=== PATIENT | female | born 1965 | race Caucasian/White ===

== ENCOUNTER 2025-08-02 15:51 | Inpatient (IN) | payer OTHER, SELFPAY ==
[2025-08-02 17:10] VITALS: BP 122/78; PULSE 64; RESP 16; TEMP 36.6; O2SAT 98
[2025-08-02 17:50] VITALS: BMI 29.1
--- NOTE | 2025-08-02 18:37 | PC.ADMIT ---
Leigh was BIBA from [facility] ED on a section 12A at 1610. She is alert, oriented and tearful but pleasant. She is disheveled and appears older than stated age. She is mostly Icelandic speaking, but does understand quite a bit. Regardless, the [employer] management retail intern system and management retail intern # [id number] was utilized throughout.? She was cooperative with skin and safety check, skin check is only significant for a large sternal scar from a heart valve replacement and some very superficial scratches on right forearm. She has a history of anxiety and depression. She states she is here, gestures to right arm, ?I cut myself. I did want to hurt myself but I do not want to ?. Through the management retail intern, she did take ?4 more medicines than usual, just to sleep. But I wanted to wake up!?, She has been very depressed since her mother 4 months ago. ?I just sleep, all the time, sleep?. She is tearful describing being with her mom every day in the hospital while she was sick and dying. She denies urges to harm self or others and any visual or perceptual disturbances. She states she has chronic back pain which she takes ?percocet?, asthma, ?stomach problems? last bm was today, Its documented that she has hypertension, but she didn't mention it. She had a heart valve replacement and is now on coumadin, last INR 2.1 done 07/[address] [facility]. Phlebotomy is drawing a stat INR now (1819), when it is resulted pharmacy will verify coumadin dose to be given tonight. 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 She has some memory lapses since and some occasional garbled speech. She uses a cane at home, ?I fall sometimes at home?, a walker was given. She denies smoking, vaping, drinking alcohol or using any illicit substances currently. However, her toxicology screen at [facility] was positive for cocaine, opiates and oxycodone. She declines the flu shot. It is documented in the paperwork from [facility] that her daughter Shani is her guardian but there is no legal paperwork with the patient. She signed a cv with Dr Herrera and is on 5 minute safety checks due to walker.?
[2025-08-02 19:01] LABS: INTERNATIONAL NORM RATIO 1.9 (0.9-1.1); Prothrombin Time 21.9 SEC (10.9-12.4)
[2025-08-02 21:47] VITALS: BP 124/82; PULSE 78; RESP 18; TEMP 36.6; O2SAT 98
--- NOTE | 2025-08-03 06:48 | PC.NURSE ---
Patient spoke with TW with assistance of [facility] flour worker. She stated that while she was at [facility] she went in with her purse by her side, however when she was getting ready to transfer to [facility], she did not see the purse. She told her daughter Ana Leiva. Patient signed JLUIS allowing [facility] to speak with the daughter. Patient did not know the phone number of her daughter by memory, TW wrote down the phone number for patient. Per paperwork from [facility] the number for Ana is [phone]. TW was unable to verify information given by patient about her missing purse.
--- NOTE | 2025-08-03 08:23 | P.CONHOSP_ITS ---
History of Present Illness Data of Consult Service Date: 08/03/25 Primary Care Provider: Litzy Mcknight MD [facility] Reason for consult: Medical consult Patient is a 59-year-old female with a past medical history of anxiety, depression, heart valve replacement on Coumadin, hypertension, hyperlipidemia and chronic kidney disease who presented to the emergency department at [facility] with suicide attempt. Patient reportedly took too many medications and then also observed her cutting herself with a knife. Patient's lab work revealed creatinine of 1.19 GFR 52. No other electrolyte abnormalities, no leukocytosis, no anemia. Tox screen positive were cocaine, opiates. Patient is prescribed opiates. Her EKG demonstrated sinus bradycardia with no ischemic changes. On exam she is weepy, reports that she misses her mother. Denies any medical concerns. Denies any concerning symptoms. Review of Systems 2 Review of Systems: Denies any shortness of breath, chest pain, headaches, dysuria, abdominal pain or discomfort, nausea, vomiting or diarrhea. Denies fever or chills. [facility] Medical History (Updated 08/03/25 @ 14:38 by Leann Hernandez DNP) Cocaine use disorder MDD (major depressive disorder), recurrent severe, without psychosis Social History Household Members: None Housing: Apartment Do you presently have visiting nurse or other home services: Yes ([facility]) Patient Tobacco Use Status: Former Tobacco user Smoked in Last 30 Days: No Currently Displaying Signs/Symptoms of Drug Intoxication Withdrawal: No Mormonism Healthcare Practices: Gnosticism Advance Directives: No Advance Directives Information Provided: Yes Do you have thoughts of harming others: None Do you have a plan to hurt others: No Plan Recently lost weight without trying: No Nutrition Risks: No Nutritional Risk Patient : No : No Poor oral hygiene: No Meds Allergies Allergy/AdvReac Type Severity Reaction Status Date / Time No Known Allergies Allergy Verified 08/02/25 17:01 Active Medications: Current Medications Acetaminophen (Acetaminophen 325 Mg Tablet) 650 mg PO Q6H PRN PRN Reason: Headache/Pain, Scale 1-10 Last Admin: 08/03/25 06:11 Dose: 650 mg Al Hydroxide/Mg Hydroxide (Magnesium Hydrox/Alum Hydrox 30 Ml Oral.Susp) 30 ml PO Q6H PRN PRN Reason: Heartburn/Nausea Aspirin (Aspirin Enteric Coated 81 Mg Tablet.Dr) 81 mg PO DAILY JUAN ANTONIO Atorvastatin Calcium (Atorvastatin Calcium 20 Mg Tablet) 20 mg PO DAILY JUAN ANTONIO Furosemide (Furosemide 20 Mg Tablet) 20 mg PO DAILY JUAN ANTONIO; Protocol Hydroxyzine HCl (Hydroxyzine Hcl 25 Mg Tablet) 25 mg PO Q6H PRN PRN Reason: mild anxiety Lisinopril (Lisinopril 5 Mg Tablet) 5 mg PO DAILY JUAN ANTONIO; Protocol Magnesium Hydroxide (Milk Of Magnesia 30 Ml Oral.Susp) 30 ml PO DAILY PRN PRN Reason: Constipation Mirtazapine (Mirtazapine 7.5 Mg Tablet) 7.5 mg PO BEDTIME PRN PRN Reason: Sleep Nicotine (Nicotine 21 Mg Patch.Td24) 21 mg TRANSDERMA DAILY PRN PRN Reason: smoking cessation Nicotine Polacrilex (Nicotine Polacrilex 2 Mg Gum) 4 mg BUCCAL Q2H PRN PRN Reason: Nicotine Cravings Olanzapine (Olanzapine 2.5 Mg Tablet) 2.5 mg PO TID PRN PRN Reason: agitation Oxycodone HCl (Oxycodone Hcl Immed Release 5 Mg Tablet) 5 mg PO Q12H PRN PRN Reason: severe pain Paroxetine HCl (Paroxetine Hcl 30 Mg Tablet) 30 mg PO DAILY JUAN ANTONIO Trazodone HCl (Trazodone Hcl 50 Mg Tablet) 50 mg PO BEDTIME MRX1 PRN PRN Reason: Insomnia Warfarin Sodium (Warfarin Sodium 5 Mg Tablet) 5 mg PO DAILY@1800 JUAN ANTONIO Last Admin: 08/02/25 20:21 Dose: 5 mg Home Medications ?Medication ?Instructions ?Recorded ?Confirmed ?Last Taken ?Type aspirin 81 mg tablet,delayed 81 mg PO DAILY 08/02/25 1 08/02/25 History release atorvastatin 20 mg tablet 20 mg PO DAILY 08/02/2507/1408/01/25 21:00 History clonazepam 0.5 mg tablet 0.5 mg PO DAILY PRN Anxiety 08/02/25 08/02/25 Unknown History clonazepam 0.5 mg tablet 1 mg PO BEDTIME 08/02/25 Unknown History furosemide 20 mg tablet 20 mg PO DAILY 08/02/2507/1408/02/25 09:00 History gabapentin 300 mg capsule 300 mg PO BID 08/02/2508/0208/02/25 09:00 History lisinopril 5 mg tablet 5 mg PO DAILY 08/02/2508/02 Unknown History mirtazapine 15 mg tablet 7.5 mg PO BEDTIME PRN Sleep 08/02/25 08/02/25 Unknown History oxycodone 5 mg tablet 5 mg PO Q12H PRN pain 08/02/25 Unknown History paroxetine HCl 30 mg tablet 30 mg PO DAILY depressive disorder 08/02/25 08/02/25 Unknown History warfarin 5 mg tablet 5 mg PO DAILY 08/02/2508/0208/01/25 17:00 History Physical Exam 2 Vital Signs and Narrative: Vital Signs: Last Vital Signs Temp 97.8 F 08/02/25 21:47 Pulse 78 08/02/25 21:47 Resp 18 08/02/25 21:47 BP 124/82 08/02/25 21:47 Pulse Ox 98 08/02/25 21:47 O2 Del Method Room Air 08/02/25 21:47 BMI result Body Mass Index 29.1 Alert and oriented X3, able to give good history. Neuro: CN II-X11 intact, no deficits, visual acuity intact EYES: PERRLA, EOM intact ENT: Hearing intact, MMM Cardiac: S1 S2 RRR, No ectopy Pulmonary: lungs clear to auscultation, No increased WOB. Abdominal: BS active in all 4 quadrants, no guarding or tenderness MSK: Strength 5/5 upper and lower extremities : Deferred Extremities: No edema in lower extremities Psych: Weepy Skin: Warm and dry, Intact Results Labs 08/03/25 08:09 Labs: Laboratory Results - last 24 hr 08/02/25 18:32 PT 21.9 H INR 1.9 H Assessment and Plan (1) HTN (hypertension): Status: Acute Plan 59-year-old female admitted to inpatient psych after she presented to [facility] with major depressive disorder, psychosis and suicide ideation. Anxiety/MDD/Psychosis Treatment per psychiatric team History of mitral valve replacement on Coumadin/hypertension/hyperlipidemia/fluid overload related to rheumatic heart disease Continue Coumadin dosing per pharmacy recommendation Continue atorvastatin, Lasix, lisinopril daily Appears euvolemic on exam Vitals and labs were stable Chronic kidney disease Baseline 1.2 Avoid nephrotoxins Chronic arthralgias Takes oxycodone chronically Thank you for allowing me to participate in the care of this patient. Will follow with you, please notify medical provider with any changes in condition or concerns.
[2025-08-03 08:30] LABS: INTERNATIONAL NORM RATIO 1.9 (0.9-1.1); Prothrombin Time 21.5 SEC (10.9-12.4)
[2025-08-03 08:48] LABS: Alanine Aminotransferase 16 U/L (0-31); Albumin Level 4.3 g/dL (3.5-5.0); Alkaline Phosphatase 103 U/L (39-117); Anion Gap 11 (12-20); Aspartate Amino Transferase 23 U/L (5-31); Blood Urea Nitrogen 16 mg/dL (9-16); Calcium 9.7 mg/dL (8.4-10.2); Carbon Dioxide 26 mmol/L (22-29); Chloride 109 mmol/L (96-108); Cholesterol 156 mg/dL (<200); Creatinine Clr Calc Pharmacy 69.6; Estimated Glomerular Filt Rate 57; HDL Cholesterol 46 mg/dL (>40); Potassium 4.4 mmol/L (3.3-5.1); Sodium 142 mmol/L (135-145); Total Protein 7.2 g/dL (6.5-8.0); Triglycerides 89 mg/dL (<150)
[2025-08-03 09:36] VITALS: BP 145/74
[2025-08-03] MEDS: Aspirin Enteric Coated 81 MG TABLET.DR PO (09:37)
[2025-08-03 09:45] VITALS: PULSE 72; RESP 16; TEMP 36.6; O2SAT 97
--- NOTE | 2025-08-03 10:50 | HO.PSYADMNOT ---
HPI Date of Service: 08/03/25 Chief Complaint: Major Depression severe recurrent with psychosis Sources of Information: patient interviewed, chart reviewed and crisis/core team assessment reviewed HPI Subjective Notes: Raymond Warning, Conditional Voluntary and 3 Day Narrative: met with patient on 08/02/2025, and again on 08/03/25 at 12:00 with Territory Sales Executive Josselin Patient is a 59-year-old female with history of anxiety, MDD, heart valve replacement on Coumadin, HTN, HLD, CKD, CVA(?), chronic back pain prescribed oxycodone, who presented to the ED following suicidal gesture in the face of ongoing depression. On 08/02 Patient reported being depressed since her mother 4 months ago, saying she just sleeps all the time. She said that she cut herself, indicating her arm (which has only superficial scratches) saying that she wanted to hurt herself but did not want to . Patient acknowledged that she took more medication than usual but denies that this was in any way a suicide attempt, saying she just wanted to sleep. She denies AVH; denies substance abuse; she is prescribed oxycodone however U tox was also positive for cocaine. Rubber Stamp Assembler attempted to meet with patient again on 08/03 to further clarify at assess however patient having ongoing diarrhea which kept interrupting ability to have a formal conversation. Patient reports that she has a guardian, her daughter Shani Past Psychiatric History: Unsure this time Medical Evaluation Reviewed: Hospitalist August Pending ON LICENSE OF [facility] Medical History (Updated 08/03/25 @ 14:24 by Cory Herrera MD) Cocaine use disorder MDD (major depressive disorder), recurrent severe, without psychosis Family History: Deferred Social History: Mother 4 months ago Has a daughter who is her guardian Substance History: UDS positive for cocaine Trauma History: Defer Diagnostics Vital Signs (24Hr): Vital Signs - 24 hr 08/02/25 17:10 08/02/25 21:47 08/03/25 09:36 Temperature 98 F 97.8 F Pulse Rate 64 78 Respiratory Rate 16 18 Blood Pressure 122/78 124/82 145/74 H Pulse Oximetry 98 98 Oxygen Delivery Method Room Air 08/03/25 09:45 Temperature 98 F Pulse Rate 72 Respiratory Rate 16 Blood Pressure Pulse Oximetry 97 Oxygen Delivery Method Room Air BMI result Body Mass Index 29.1 Labs 08/03/25 08:09 Labs: Laboratory Results - last 48 hr 08/02/25 08/03/25 18:32 08:09 PT 21.9 H 21.5 H INR 1.9 H 1.9 H Sodium 142 Potassium 4.4 Chloride 109 H Carbon Dioxide 26 Anion Gap 11 L BUN 16 Creatinine 0.99 Estim Creat Clear Calc 69.6 Estimated GFR 57 Random Glucose 99 Estimat Average Glucose 105 Hemoglobin A1c % 5.3 Calcium 9.7 Total Bilirubin 0.7 AST 23 ALT 16 Alkaline Phosphatase 103 Total Protein 7.2 Albumin 4.3 Triglycerides 89 Cholesterol 156 LDL Cholesterol, Calc 93 HDL Cholesterol 46 TSH 0.84 Meds/Allergies Meds Home Medications ?Medication ?Instructions ?Recorded ?Confirmed ?Type aspirin 81 mg tablet,delayed 81 mg PO DAILY 08/02/25 08/02/25 History release atorvastatin 20 mg tablet 20 mg PO DAILY 08/02/25 08/02/25 History clonazepam 0.5 mg tablet 0.5 mg PO DAILY PRN Anxiety 08/02/25 08/02/25 History clonazepam 0.5 mg tablet 1 mg PO BEDTIME 08/02/25 08/02/25 History furosemide 20 mg tablet 20 mg PO DAILY 08/02/25 08/02/25 History gabapentin 300 mg capsule 300 mg PO BID 08/02/25 08/02/25 History lisinopril 5 mg tablet 5 mg PO DAILY 08/02/25 08/02/25 History mirtazapine 15 mg tablet 7.5 mg PO BEDTIME PRN Sleep 08/02/25 08/02/25 History oxycodone 5 mg tablet 5 mg PO Q12H PRN pain 08/02/25 08/02/25 History paroxetine HCl 30 mg tablet 30 mg PO DAILY depressive disorder 08/02/25 08/02/25 History warfarin 5 mg tablet 5 mg PO DAILY 08/02/25 08/02/25 History Allergies Allergies Allergy/AdvReac Type Severity Reaction Status Date / Time No Known Allergies Allergy Verified 08/02/25 17:01 Mental Status Exam Mental Status Exam Narrative: Pt is alert and oriented; behavior is cooperative, tearful; patient is not in distress; dressed in hospital attire with unkempt hair but adequate hygiene; mood is described as sad and affect congruent, tearful; eye contact appropriate; Speech is normal rate, volume and prosody and not pressured; some psychomotor retardation present; thought process is goal directed, concrete; Thought content is on missing her mother; no paranoid ideations expressed; denies any SI/HI. Denies AVH Patients insight and judgment impaired Assessment & Plan Assessment & Plan (1) MDD (major depressive disorder), recurrent severe, without psychosis: Status: Acute Code(s): F33.2 - Major depressive disorder, recurrent severe without psychotic features (2) Cocaine use disorder: Status: Acute Code(s): F14.10 - Cocaine abuse, uncomplicated Plan HPI: Patient is a 59-year-old female with history of anxiety, MDD, heart valve replacement on Coumadin, HTN, HLD, CKD, CVA(?), chronic back pain prescribed oxycodone, who presented to the ED following suicidal gesture in the face of ongoing depression. On 08/02 Patient reported being depressed since her mother 4 months ago, saying she just sleeps all the time. She said that she cut herself, indicating her arm (which has only superficial scratches) saying that she wanted to hurt herself but did not want to . Patient acknowledged that she took more medication than usual but denies that this was in any way a suicide attempt, saying she just wanted to sleep. She denies AVH; denies substance abuse; she is prescribed oxycodone however U tox was also positive for cocaine. Rubber Stamp Assembler attempted to meet with patient again on 08/03 to further clarify at assess however patient having ongoing diarrhea which kept interrupting ability to have a formal conversation. Patient reports that she has a guardian, her daughter Shani Formulation/clinical reasoning: Reports worsening depression in the face of losing her mother. She is on Paxil 30 mg. Her full history is unclear as patient was not able to participate further due to diarrheal illness. Will continue home medication regimen for now. Collecting stool samples to rule out C diff. on the unit, patient had some behaviors that were hard to understand such as holding her feces in her hand and offering it to 1 of the counselors; being cleaned up in the bathroom with nurse to returned finding feces smeared all over her clothing; not sure if patient was trying to clean herself and was unable to (she uses a walker; possible history of CVA) or if this represents disorganization. Plan: CV Q 15 minute checks Continue home medication regimen Patient on Coumadin and INRs being checked daily C diff ordered/GI panel ordered Will get collateral Patient educated on: diagnosis and medical condition Informed Consent: understands and further education needed Reason for continued inpatient stay Substantial Risk for: rapid decompensation Statement Statement: I have reviewed the history and physical and performed a pertinent examination on my patient. No changes have occurred unless specified. If the History and Physical was not performed prior to admission, the Hospitalist's service will be consulted for completing the admission physical. Time Spent With Patient Time: Total time managing care of this patient today ____ minutes.
[2025-08-03 16:02] LABS: CDiff Gene PCR NEGATIVE (Negative)
[2025-08-03 20:00] VITALS: BP 166/72; PULSE 78; RESP 16; TEMP 36.6; O2SAT 98
[2025-08-04 05:36] LABS: E. coli EAEC Not Detected (Not Detect.); E. coli EPEC Not Detected (Not Detect.); E. coli ETEC Not Detected (Not Detect.); E. coli STEC Not Detected (Not Detect.); Shigella sp./EIEC Not Detected (Not Detect.)
[2025-08-04 07:00] VITALS: BMI 28.2
[2025-08-04 08:00] VITALS: BP 121/71; PULSE 76; RESP 18; TEMP 36.5; O2SAT 97
[2025-08-04] MEDS: Aspirin Enteric Coated 81 MG TABLET.DR PO (08:44)
--- NOTE | 2025-08-04 09:51 | P.PNPSI_ITS ---
Subjective Subjective Date of Service: 08/04/25 Reason For Visit: Major Depression severe recurrent with psychosis Interim History: met with patient; discussed with team; patient seen with coat examiner Josselin Patient said she is feeling better. 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 She denies any SI at all. She at 1st denied but then acknowledged that she sometimes uses crack; says that numerous people in the building sell it. Patient does not know her medications. She accepted that she is on an antidepressant. She says that she was very sad when her mother but that she is starting to feel like she is getting better. Patient gave permission to speak with her daughter who is also her guardian Patient's guardian and daughter said that patient has been getting increasingly more depressed since this summer, not attending to ADLs and has seemed more confused and forgetful. Mental Status Exam Mental Status Exam Narrative: Pt is alert and oriented; behavior is cooperative, calm; patient is not in distress; dressed in hospital attire with unkempt hair but adequate hygiene; mood is described as better and affect congruent, brighter, more calm; eye contact appropriate; Speech is normal rate, volume and prosody and not pressured; some psychomotor retardation present; thought process is goal directed, concrete; Thought content is on treatment; no paranoid ideations expressed; denies any SI/HI. Denies AVH Patients insight and judgment impaired Diagnostics Vital Signs (24Hr): Vital Signs - 24 hr 08/03/25 20:00 08/04/25 08:00 Temperature 97.8 F 97.7 F Pulse Rate 78 76 Respiratory Rate 16 18 Blood Pressure 166/72 H 121/71 Pulse Oximetry 98 97 Oxygen Delivery Method Room Air Room Air BMI result Body Mass Index 29.1 Labs 08/04/25 12:48 08/04/25 12:48 Labs: Laboratory Results - last 48 hr 08/02/25 08/03/25 08/03/25 18:32 08:09 13:00 PT 21.9 H 21.5 H INR 1.9 H 1.9 H Sodium 142 Potassium 4.4 Chloride 109 H Carbon Dioxide 26 Anion Gap 11 L BUN 16 Creatinine 0.99 Estim Creat Clear Calc 69.6 Estimated GFR 57 Random Glucose 99 Estimat Average Glucose 105 Hemoglobin A1c % 5.3 Calcium 9.7 Total Bilirubin 0.7 AST 23 ALT 16 Alkaline Phosphatase 103 Total Protein 7.2 Albumin 4.3 Triglycerides 89 Cholesterol 156 LDL Cholesterol, Calc 93 HDL Cholesterol 46 TSH 0.84 Stl C. cayetanensis PCR Not Detected Stool Rotavirus A PCR Not Detected Stl Adenov F 40/41 PCR Not Detected Stool Astrovirus (PCR) Not Detected Stool Campylobacter PCR Not Detected Stool Cryptosporidium PCR Not Detected Stl Sh Tox Pr E STEC PCR Not Detected Stool E coli O157 PCR Not applicable Stl Enterotoxigenic E PCR Not Detected Stool EPEC (PCR) Not Detected Stool EAEC (PCR) Not Detected Stl E. histolytica PCR Not Detected Stool Giardia Lamblia PCR Not Detected Stl P. shigelloides PCR Not Detected Stool Salmonella PCR Not Detected Stool Sapovirus (PCR) Not Detected Stl Shigella/EIEC PCR Not Detected St Y.enterocolitica PCR Not Detected Stool Vibrio (PCR) Not Detected Stl Vibrio cholerae PCR Not Detected Stl Norovirus GI/GII PCR Not Detected C. difficile Tox B Gene NEGATIVE Medications Medications Current Medications Acetaminophen (Acetaminophen 325 Mg Tablet) 650 mg PO Q6H PRN PRN Reason: Headache/Pain, Scale 1-10 Last Admin: 08/03/25 06:11 Dose: 650 mg Al Hydroxide/Mg Hydroxide (Magnesium Hydrox/Alum Hydrox 30 Ml Oral.Susp) 30 ml PO Q6H PRN PRN Reason: Heartburn/Nausea Aspirin (Aspirin Enteric Coated 81 Mg Tablet.Dr) 81 mg PO DAILY [facility] Last Admin: 08/04/25 08:44 Dose: 81 mg Atorvastatin Calcium (Atorvastatin Calcium 20 Mg Tablet) 20 mg PO DAILY [facility] Last Admin: 08/04/25 08:44 Dose: 20 mg Clonazepam (Clonazepam 0.5 Mg Tablet) 0.5 mg PO TID PRN PRN Reason: Anxiety Furosemide (Furosemide 20 Mg Tablet) 20 mg PO DAILY [facility]; Protocol Last Admin: 08/04/25 08:44 Dose: 20 mg Gabapentin (Gabapentin 300 Mg Capsule) 300 mg PO BID [facility] Last Admin: 08/04/25 08:44 Dose: 300 mg Hydroxyzine HCl (Hydroxyzine Hcl 25 Mg Tablet) 25 mg PO Q6H PRN PRN Reason: mild anxiety Last Admin: 08/03/25 20:49 Dose: 25 mg Lisinopril (Lisinopril 5 Mg Tablet) 5 mg PO DAILY [facility]; Protocol Last Admin: 08/04/25 08:44 Dose: 5 mg Loperamide HCl (Loperamide Hcl 2 Mg Capsule) 2 mg PO Q6H PRN PRN Reason: loose stool Last Admin: 08/03/25 20:48 Dose: 2 mg Magnesium Hydroxide (Milk Of Magnesia 30 Ml Oral.Susp) 30 ml PO DAILY PRN PRN Reason: Constipation Mirtazapine (Mirtazapine 7.5 Mg Tablet) 7.5 mg PO BEDTIME PRN PRN Reason: Sleep Nicotine (Nicotine 21 Mg Patch.Td24) 21 mg TRANSDERMA DAILY PRN PRN Reason: smoking cessation Nicotine Polacrilex (Nicotine Polacrilex 2 Mg Gum) 4 mg BUCCAL Q2H PRN PRN Reason: Nicotine Cravings Olanzapine (Olanzapine 2.5 Mg Tablet) 2.5 mg PO TID PRN PRN Reason: agitation Oxycodone HCl (Oxycodone Hcl Immed Release 5 Mg Tablet) 5 mg PO Q12H PRN PRN Reason: severe pain Paroxetine HCl (Paroxetine Hcl 30 Mg Tablet) 30 mg PO DAILY [facility] Last Admin: 08/04/25 08:44 Dose: 30 mg Trazodone HCl (Trazodone Hcl 50 Mg Tablet) 50 mg PO BEDTIME MRX1 PRN PRN Reason: Insomnia Warfarin Sodium (Warfarin Sodium 5 Mg Tablet) 5 mg PO DAILY@1800 [facility] Last Admin: 08/03/25 20:48 Dose: 5 mg Allergies Allergies Allergy/AdvReac Type Severity Reaction Status Date / Time No Known Allergies Allergy Verified 08/02/25 17:01 Assessment & Plan Assessment & Plan (1) MDD (major depressive disorder), recurrent severe, without psychosis: Status: Acute Code(s): F33.2 - Major depressive disorder, recurrent severe without psychotic features (2) HTN (hypertension): Status: Acute Code(s): I10 - Essential (primary) hypertension (3) Cocaine use disorder: Status: Acute Code(s): F14.10 - Cocaine abuse, uncomplicated Plan HPI: Patient is a 59-year-old female with history of anxiety, MDD, heart valve replacement on Coumadin, HTN, HLD, CKD, CVA(?), chronic back pain prescribed oxycodone, who presented to the ED following suicidal gesture in the face of ongoing depression. On 08/02 Patient reported being depressed since her mother 4 months ago, saying she just sleeps all the time. She said that she cut herself, indicating her arm (which has only superficial scratches) saying that she wanted to hurt herself but did not want to . Patient acknowledged that she took more medication than usual but denies that this was in any way a suicide attempt, saying she just wanted to sleep. She denies AVH; denies substance abuse; she is prescribed oxycodone however U tox was also positive for cocaine. Heating And Blending Supervisor attempted to meet with patient again on 08/03 to further clarify at assess however patient having ongoing diarrhea which kept interrupting ability to have a formal conversation. Patient reports that she has a guardian, her daughter Shani Formulation/clinical reasoning: Reports worsening depression in the face of losing her mother. She is on Paxil 30 mg. Her full history is unclear as patient was not able to participate further due to diarrheal illness. Will continue home medication regimen for now. Collecting stool samples to rule out C diff. on the unit, patient had some behaviors that were hard to understand such as holding her feces in her hand and offering it to 1 of the counselors; being cleaned up in the bathroom with nurse to returned finding feces smeared all over her clothing; not sure if patient was trying to clean herself and was unable to (she uses a walker; possible history of CVA) or if this represents disorganization. Hospital course: 08/04 Patient said she is feeling better. 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 She denies any SI at all. She at 1st denied but then acknowledged that she sometimes uses crack; says that numerous people in the building sell it. Patient does not know her medications. She accepted that she is on an antidepressant. She says that she was very sad when her mother but that she is starting to feel like she is getting better. Patient gave permission to speak with her daughter who is also her guardian -Patient's guardian and daughter said that patient has been getting increasingly more depressed since this summer, not attending to ADLs and has seemed more confused and forgetful. -patient amenable to increasing or adding antidepressant medication -Diarrhea has fully resolved. C diff/GI panel negative. Heating And Blending Supervisor wonders if patient was taking increase dose of her home oxycodone prescription and on the unit, only being given 1 mg b.i.d., had some opiate withdrawal, triggering loose stool. Patient denies taking anymore than 1 mg b.i.d. Plan: CV Q 15 minute checks Continue home medication regimen Patient on Coumadin and INRs being checked daily C diff/GI panel negative Will get collateral Patient educated on diagnosis and medical condition Anxiety/MDD/Psychosis Treatment per psychiatric team History of mitral valve replacement on Coumadin/hypertension/hyperlipidemia/fluid overload related to rheumatic heart disease Continue Coumadin dosing per pharmacy recommendation Continue atorvastatin, Lasix, lisinopril daily Appears euvolemic on exam Vitals and labs were stable Chronic kidney disease Baseline 1.2 Avoid nephrotoxins Chronic arthralgias Takes oxycodone chronically Patient educated on: diagnosis, medication risk/benefits, substance abuse, therapeutic strategies and medical condition Informed Consent: understands and further education needed Reason for continued inpatient stay Substantial Risk for: rapid decompensation Time Spent With Patient Time: Total time managing care of this patient today ____ minutes.
[2025-08-04 12:53] LABS: MANUAL DIFF FLAG NO
[2025-08-04 12:55] LABS: Hematocrit 38.9 % (37.0-47.0); Hemoglobin 13.2 g/dl (12.0-16.0); Imm Gran Abs Auto 0.03 X10*3/uL (0.00-0.03); Imm Gran Pct Auto 0.3 % (0.0-0.4); Lymphocytes Absolute Auto 1.2 X10*3/uL (1.2-4.9); Mean Corpuscular HGB Conc 33.9 g/dl (31.0-35.0); Mean Corpuscular Hemoglobin 30.6 pg (27.0-33.0); Mean Corpuscular Volume 90.3 fL (80.0-98.0); NRBC Abs Auto 0.000 X10*3/uL (0.0-0.012); NRBC Pct Auto 0.0 /100WBC (0.0-0.2); Platelet Count 294 X10*3/uL (160-400); Red Blood Count 4.31 X10*6/uL (4.20-5.50); White Blood Count 9.1 X10*3/uL (4.8-10.8)
[2025-08-04 13:01] LABS: INTERNATIONAL NORM RATIO 2.9 (0.9-1.1); Prothrombin Time 33.8 SEC (10.9-12.4)
[2025-08-04 13:12] LABS: Anion Gap 15 (12-20); Blood Urea Nitrogen 19 mg/dL (9-16); Calcium 9.4 mg/dL (8.4-10.2); Carbon Dioxide 23 mmol/L (22-29); Chloride 109 mmol/L (96-108); Creatinine Clr Calc Pharmacy 57.0; Estimated Glomerular Filt Rate 46; Potassium 3.9 mmol/L (3.3-5.1); Sodium 143 mmol/L (135-145)
[2025-08-04 19:52] VITALS: BP 147/67; PULSE 61; RESP 16; TEMP 36.8; O2SAT 99
[2025-08-05 07:56] VITALS: BP 148/74; PULSE 74; RESP 16; TEMP 36.4; O2SAT 97
[2025-08-05 08:22] LABS: INTERNATIONAL NORM RATIO 3.0 (0.9-1.1); Prothrombin Time 34.2 SEC (10.9-12.4)
[2025-08-05 08:59] VITALS: BP 148/74
[2025-08-05] MEDS: Aspirin Enteric Coated 81 MG TABLET.DR PO (08:59)
--- NOTE | 2025-08-05 09:45 | HO.PSYCHPN ---
Subjective Subjective Date of Service: 08/05/25 Reason For Visit: Major Depression severe recurrent with psychosis Interim History: Met with patient; discussed with team Patient reports that she is feeling better but agrees with the daughter that she has been very depressed over the past months and agrees to starting Wellbutrin. Pocket Setter discussed reasoning for starting this med with which she agreed. OT did [place] and patient scored 12/30. starting Wellbutrin XR 150mg to address worsening depression and to help with executive functioning Mental Status Exam Mental Status Exam Narrative: Pt is alert and oriented; behavior is isolative and mostly lying in bed and keeping herself however cooperative and friendly on approach; patient is not in distress; dressed in hospital attire with unkempt hair but adequate hygiene; mood is described as better and affect congruent, brighter, more calm; eye contact appropriate; Speech is normal rate, volume and prosody and not pressured; some psychomotor retardation present; thought process is goal directed, concrete; Thought content is on treatment; no paranoid ideations expressed; denies any SI/HI. Denies AVH Patients insight and judgment impaired Diagnostics Vital Signs (24Hr): Vital Signs - 24 hr 08/04/25 19:52 08/05/25 07:56 08/05/25 08:59 Temperature 98.2 F 97.5 F Pulse Rate 61 74 Respiratory Rate 16 16 Blood Pressure 147/67 H 148/74 H 148/74 H Pulse Oximetry 99 97 Oxygen Delivery Method Room Air Room Air BMI result Body Mass Index 28.2 Labs 08/04/25 12:48 08/04/25 12:48 Labs: Laboratory Results - last 48 hr 08/03/25 08/04/25 08/05/25 13:00 12:48 07:53 WBC 9.1 RBC 4.31 Hgb 13.2 Hct 38.9 MCV 90.3 MCH 30.6 MCHC 33.9 RDW 13.5 Plt Count 294 MPV 10.6 Immature Gran % (Auto) 0.3 Neut % (Auto) 80.2 H Lymph % (Auto) 13.1 L [place] % (Auto) 5.8 Eos % (Auto) 0.3 Baso % (Auto) 0.3 Lymph # (Auto) 1.2 [place] # (Auto) 0.5 Eos # (Auto) 0.0 Baso # (Auto) 0.0 Abs Immat Gran (auto) 0.03 Absolute Neuts (auto) 7.3 Absolute Nucleated RBC 0.000 Nucleated RBC % (auto) 0.0 PT 33.8 H D 34.2 H INR 2.9 H 3.0 H Sodium 143 Potassium 3.9 Chloride 109 H Carbon Dioxide 23 Anion Gap 15 BUN 19 H Creatinine 1.19 Estim Creat Clear Calc 57.0 Estimated GFR 46 Random Glucose 172 H Calcium 9.4 Stl C. cayetanensis PCR Not Detected Stool Rotavirus A PCR Not Detected Stl Adenov F 40/41 PCR Not Detected Stool Astrovirus (PCR) Not Detected Stool Campylobacter PCR Not Detected Stool Cryptosporidium PCR Not Detected Stl Sh Tox Pr E STEC PCR Not Detected Stool E coli O157 PCR Not applicable Stl Enterotoxigenic E PCR Not Detected Stool EPEC (PCR) Not Detected Stool EAEC (PCR) Not Detected Stl E. histolytica PCR Not Detected Stool Giardia Lamblia PCR Not Detected Stl P. shigelloides PCR Not Detected Stool Salmonella PCR Not Detected Stool Sapovirus (PCR) Not Detected Stl Shigella/EIEC PCR Not Detected St Y.enterocolitica PCR Not Detected Stool Vibrio (PCR) Not Detected Stl Vibrio cholerae PCR Not Detected Stl Norovirus GI/GII PCR Not Detected C. difficile Tox B Gene NEGATIVE Medications Medications Current Medications Acetaminophen (Acetaminophen 325 Mg Tablet) 650 mg PO Q6H PRN PRN Reason: Headache/Pain, Scale 1-10 Last Admin: 08/03/25 06:11 Dose: 650 mg Al Hydroxide/Mg Hydroxide (Magnesium Hydrox/Alum Hydrox 30 Ml Oral.Susp) 30 ml PO Q6H PRN PRN Reason: Heartburn/Nausea Aspirin (Aspirin Enteric Coated 81 Mg Tablet.Dr) 81 mg PO DAILY [facility] Last Admin: 08/05/25 08:59 Dose: 81 mg Atorvastatin Calcium (Atorvastatin Calcium 20 Mg Tablet) 20 mg PO DAILY [facility] Last Admin: 08/05/25 08:59 Dose: 20 mg Clonazepam (Clonazepam 0.5 Mg Tablet) 0.5 mg PO TID PRN PRN Reason: Anxiety Furosemide (Furosemide 20 Mg Tablet) 20 mg PO DAILY [facility]; Protocol Last Admin: 08/05/25 09:00 Dose: 20 mg Gabapentin (Gabapentin 300 Mg Capsule) 300 mg PO BID [facility] Last Admin: 08/05/25 08:59 Dose: 300 mg Hydroxyzine HCl (Hydroxyzine Hcl 25 Mg Tablet) 25 mg PO Q6H PRN PRN Reason: mild anxiety Last Admin: 08/04/25 21:25 Dose: 25 mg Lisinopril (Lisinopril 5 Mg Tablet) 5 mg PO DAILY [facility]; Protocol Last Admin: 08/05/25 08:59 Dose: 5 mg Loperamide HCl (Loperamide Hcl 2 Mg Capsule) 2 mg PO Q6H PRN PRN Reason: loose stool Last Admin: 08/03/25 20:48 Dose: 2 mg Magnesium Hydroxide (Milk Of Magnesia 30 Ml Oral.Susp) 30 ml PO DAILY PRN PRN Reason: Constipation Mirtazapine (Mirtazapine 7.5 Mg Tablet) 7.5 mg PO BEDTIME PRN PRN Reason: Sleep Nicotine (Nicotine 21 Mg Patch.Td24) 21 mg TRANSDERMA DAILY PRN PRN Reason: smoking cessation Nicotine Polacrilex (Nicotine Polacrilex 2 Mg Gum) 4 mg BUCCAL Q2H PRN PRN Reason: Nicotine Cravings Olanzapine (Olanzapine 2.5 Mg Tablet) 2.5 mg PO TID PRN PRN Reason: agitation Oxycodone HCl (Oxycodone Hcl Immed Release 5 Mg Tablet) 5 mg PO Q12H PRN PRN Reason: severe pain Paroxetine HCl (Paroxetine Hcl 30 Mg Tablet) 30 mg PO DAILY [facility] Last Admin: 08/05/25 08:59 Dose: 30 mg Trazodone HCl (Trazodone Hcl 50 Mg Tablet) 50 mg PO BEDTIME MRX1 PRN PRN Reason: Insomnia Warfarin Sodium (Warfarin Sodium 5 Mg Tablet) 5 mg PO DAILY@1800 [facility] Last Admin: 08/04/25 17:39 Dose: 5 mg Allergies Allergies Allergy/AdvReac Type Severity Reaction Status Date / Time No Known Allergies Allergy Verified 08/02/25 17:01 Assessment & Plan Assessment & Plan (1) MDD (major depressive disorder), recurrent severe, without psychosis: Status: Acute Code(s): F33.2 - Major depressive disorder, recurrent severe without psychotic features (2) HTN (hypertension): Status: Acute Code(s): I10 - Essential (primary) hypertension (3) Cocaine use disorder: Status: Acute Code(s): F14.10 - Cocaine abuse, uncomplicated Plan HPI: Patient is a 59-year-old female with history of anxiety, MDD, heart valve replacement on Coumadin, HTN, HLD, CKD, CVA(?), chronic back pain prescribed oxycodone, who presented to the ED following suicidal gesture in the face of ongoing depression. On 08/02 Patient reported being depressed since her mother 4 months ago, saying she just sleeps all the time. She said that she cut herself, indicating her arm (which has only superficial scratches) saying that she wanted to hurt herself but did not want to . Patient acknowledged that she took more medication than usual but denies that this was in any way a suicide attempt, saying she just wanted to sleep. She denies AVH; denies substance abuse; she is prescribed oxycodone however U tox was also positive for cocaine. Pocket Setter attempted to meet with patient again on 08/03 to further clarify at assess however patient having ongoing diarrhea which kept interrupting ability to have a formal conversation. Patient reports that she has a guardian, her daughter Shani Formulation/clinical reasoning: Reports worsening depression in the face of losing her mother. She is on Paxil 30 mg. Her full history is unclear as patient was not able to participate further due to diarrheal illness. Will continue home medication regimen for now. Collecting stool samples to rule out C diff. on the unit, patient had some behaviors that were hard to understand such as holding her feces in her hand and offering it to 1 of the counselors; being cleaned up in the bathroom with nurse to returned finding feces smeared all over her clothing; not sure if patient was trying to clean herself and was unable to (she uses a walker; possible history of CVA) or if this represents disorganization. Hospital course: 08/04 Patient said she is feeling better. 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 She denies any SI at all. She at 1st denied but then acknowledged that she sometimes uses crack; says that numerous people in the building sell it. Patient does not know her medications. She accepted that she is on an antidepressant. She says that she was very sad when her mother but that she is starting to feel like she is getting better. Patient gave permission to speak with her daughter who is also her guardian -Patient's guardian and daughter said that patient has been getting increasingly more depressed since this summer, not attending to ADLs and has seemed more confused and forgetful. -patient amenable to increasing or adding antidepressant medication -Diarrhea has fully resolved. C diff/GI panel negative. Pocket Setter wonders if patient was taking increase dose of her home oxycodone prescription and on the unit, only being given 1 mg b.i.d., had some opiate withdrawal, triggering loose stool. Patient denies taking anymore than 1 mg b.i.d. 08/05 Patient reports that she is feeling better but agrees with the daughter that she has been very depressed over the past months and agrees to starting Wellbutrin. Pocket Setter discussed reasoning for starting this med with which she agreed. OT did [place] and patient scored 10/11. -starting Wellbutrin XR 150mg to address worsening depression and to help with executive functioning Plan: CV Q 15 minute checks STARTed Wellbutrin XR 150mg Continue home medication regimen Patient on Coumadin and INRs being checked daily C diff/GI panel negative Will get collateral Patient educated on diagnosis and medical condition Anxiety/MDD/Psychosis Treatment per psychiatric team History of mitral valve replacement on Coumadin/hypertension/hyperlipidemia/fluid overload related to rheumatic heart disease Continue Coumadin dosing per pharmacy recommendation Continue atorvastatin, Lasix, lisinopril daily Appears euvolemic on exam Vitals and labs were stable Chronic kidney disease Baseline 1.2 Avoid nephrotoxins Chronic arthralgias Takes oxycodone chronically Patient educated on: diagnosis and medication risk/benefits Informed Consent: understands Reason for continued inpatient stay Substantial Risk for: rapid decompensation Time Spent With Patient Time: Total time managing care of this patient today ____ minutes.
[2025-08-05] MEDS: buPROPion HCl XL 150 MG TAB.ER.24H PO (10:10)
[2025-08-05 20:00] VITALS: RESP 16
[2025-08-06 08:00] VITALS: BP 161/78; PULSE 78; RESP 18; TEMP 36.3; O2SAT 99
[2025-08-06] MEDS: buPROPion HCl XL 150 MG TAB.ER.24H PO (08:22)
[2025-08-06] MEDS: Aspirin Enteric Coated 81 MG TABLET.DR PO (08:22)
--- NOTE | 2025-08-06 09:44 | P.PNPSI_ITS ---
Subjective Subjective Date of Service: 08/06/25 Reason For Visit: Major Depression severe recurrent with psychosis Interim History: Met with patient; discussed with team.Mostly in room. Isolating. Had an episode of diarrhea this morning. No N/V. No abdominal pain. Received Imodium x with relief. No signs of opioid withdrawals. Mood: OK Denies SI/HI/AVH. Review of Systems Review of Systems Denies any shortness of breath, chest pain, headaches, dysuria, abdominal pain or discomfort, nausea, vomiting or diarrhea. Denies fever or chills. Mental Status Exam Mental Status Exam Narrative: Pt is alert and oriented; behavior is isolative and mostly lying in bed and keeping herself however cooperative and friendly on approach; patient is not in distress; dressed in hospital attire with unkempt hair but adequate hygiene; mood is described as better and affect congruent, brighter, more calm; eye contact appropriate; Speech is normal rate, volume and prosody and not pressured; some psychomotor retardation present; thought process is goal directed, concrete; Thought content is on treatment; no paranoid ideations expressed; denies any SI/HI. Denies AVH Patients insight and judgment impaired Diagnostics Vital Signs (24Hr): Vital Signs - 24 hr 08/05/25 20:00 08/06/25 08:00 Temperature 97.4 F Pulse Rate 78 Respiratory Rate 16 18 Blood Pressure 161/78 H Pulse Oximetry 99 Oxygen Delivery Method Room Air BMI result Body Mass Index 28.2 Labs 08/04/25 12:48 08/04/25 12:48 Labs: Laboratory Results - last 48 hr 08/04/25 08/05/25 12:48 07:53 WBC 9.1 RBC 4.31 Hgb 13.2 Hct 38.9 MCV 90.3 MCH 30.6 MCHC 33.9 RDW 13.5 Plt Count 294 MPV 10.6 Immature Gran % (Auto) 0.3 Neut % (Auto) 80.2 H Lymph % (Auto) 13.1 L [place] % (Auto) 5.8 Eos % (Auto) 0.3 Baso % (Auto) 0.3 Lymph # (Auto) 1.2 [place] # (Auto) 0.5 Eos # (Auto) 0.0 Baso # (Auto) 0.0 Abs Immat Gran (auto) 0.03 Absolute Neuts (auto) 7.3 Absolute Nucleated RBC 0.000 Nucleated RBC % (auto) 0.0 PT 33.8 H D 34.2 H INR 2.9 H 3.0 H Sodium 143 Potassium 3.9 Chloride 109 H Carbon Dioxide 23 Anion Gap 15 BUN 19 H Creatinine 1.19 Estim Creat Clear Calc 57.0 Estimated GFR 46 Random Glucose 172 H Calcium 9.4 Medications Medications Current Medications Acetaminophen (Acetaminophen 325 Mg Tablet) 650 mg PO Q6H PRN PRN Reason: Headache/Pain, Scale 1-10 Last Admin: 08/03/25 06:11 Dose: 650 mg Al Hydroxide/Mg Hydroxide (Magnesium Hydrox/Alum Hydrox 30 Ml Oral.Susp) 30 ml PO Q6H PRN PRN Reason: Heartburn/Nausea Aspirin (Aspirin Enteric Coated 81 Mg Tablet.Dr) 81 mg PO DAILY [facility] Last Admin: 08/06/25 08:22 Dose: 81 mg Atorvastatin Calcium (Atorvastatin Calcium 20 Mg Tablet) 20 mg PO DAILY [facility] Last Admin: 08/06/25 08:22 Dose: 20 mg Bupropion HCl (Bupropion Hcl Xl 150 Mg Tab.Er.24h) 150 mg PO DAILY [facility] Last Admin: 08/06/25 08:22 Dose: 150 mg Clonazepam (Clonazepam 0.5 Mg Tablet) 0.5 mg PO TID PRN PRN Reason: Anxiety Furosemide (Furosemide 20 Mg Tablet) 20 mg PO DAILY [facility]; Protocol Last Admin: 08/06/25 08:22 Dose: 20 mg Gabapentin (Gabapentin 300 Mg Capsule) 300 mg PO BID [facility] Last Admin: 08/06/25 08:22 Dose: 300 mg Hydroxyzine HCl (Hydroxyzine Hcl 25 Mg Tablet) 25 mg PO Q6H PRN PRN Reason: mild anxiety Last Admin: 08/05/25 21:40 Dose: 25 mg Lisinopril (Lisinopril 5 Mg Tablet) 5 mg PO DAILY [facility]; Protocol Last Admin: 08/06/25 08:22 Dose: 5 mg Loperamide HCl (Loperamide Hcl 2 Mg Capsule) 2 mg PO Q6H PRN PRN Reason: loose stool Last Admin: 08/03/25 20:48 Dose: 2 mg Magnesium Hydroxide (Milk Of Magnesia 30 Ml Oral.Susp) 30 ml PO DAILY PRN PRN Reason: Constipation Mirtazapine (Mirtazapine 7.5 Mg Tablet) 7.5 mg PO BEDTIME PRN PRN Reason: Sleep Nicotine (Nicotine 21 Mg Patch.Td24) 21 mg TRANSDERMA DAILY PRN PRN Reason: smoking cessation Nicotine Polacrilex (Nicotine Polacrilex 2 Mg Gum) 4 mg BUCCAL Q2H PRN PRN Reason: Nicotine Cravings Olanzapine (Olanzapine 2.5 Mg Tablet) 2.5 mg PO TID PRN PRN Reason: agitation Oxycodone HCl (Oxycodone Hcl Immed Release 5 Mg Tablet) 5 mg PO Q12H PRN PRN Reason: severe pain Paroxetine HCl (Paroxetine Hcl 30 Mg Tablet) 30 mg PO DAILY [facility] Last Admin: 08/06/25 08:22 Dose: 30 mg Trazodone HCl (Trazodone Hcl 50 Mg Tablet) 50 mg PO BEDTIME MRX1 PRN PRN Reason: Insomnia Warfarin Sodium (Warfarin Sodium 5 Mg Tablet) 5 mg PO DAILY@1800 [facility] Last Admin: 08/05/25 17:50 Dose: 5 mg Allergies Allergies Allergy/AdvReac Type Severity Reaction Status Date / Time No Known Allergies Allergy Verified 08/02/25 17:01 Assessment & Plan Assessment & Plan (1) MDD (major depressive disorder), recurrent severe, without psychosis: Status: Acute Code(s): F33.2 - Major depressive disorder, recurrent severe without psychotic features (2) HTN (hypertension): Status: Acute Code(s): I10 - Essential (primary) hypertension (3) Cocaine use disorder: Status: Acute Code(s): F14.10 - Cocaine abuse, uncomplicated Plan HPI: Patient is a 59-year-old female with history of anxiety, MDD, heart valve replacement on Coumadin, HTN, HLD, CKD, CVA(?), chronic back pain prescribed oxycodone, who presented to the ED following suicidal gesture in the face of ongoing depression. On 08/02 Patient reported being depressed since her mother 4 months ago, saying she just sleeps all the time. She said that she cut herself, indicating her arm (which has only superficial scratches) saying that she wanted to hurt herself but did not want to . Patient acknowledged that she took more medication than usual but denies that this was in any way a suicide attempt, saying she just wanted to sleep. She denies AVH; denies substance abuse; she is prescribed oxycodone however U tox was also positive for cocaine. Purchasing Administrative Assistant attempted to meet with patient again on 08/03 to further clarify at assess however patient having ongoing diarrhea which kept interrupting ability to have a formal conversation. Patient reports that she has a guardian, her daughter Shani Formulation/clinical reasoning: Reports worsening depression in the face of losing her mother. She is on Paxil 30 mg. Her full history is unclear as patient was not able to participate further due to diarrheal illness. Will continue home medication regimen for now. Collecting stool samples to rule out C diff. on the unit, patient had some behaviors that were hard to understand such as holding her feces in her hand and offering it to 1 of the counselors; being cleaned up in the bathroom with nurse to returned finding feces smeared all over her clothing; not sure if patient was trying to clean herself and was unable to (she uses a walker; possible history of CVA) or if this represents disorganization. Hospital course: 08/04 Patient said she is feeling better. 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 She denies any SI at all. She at 1st denied but then acknowledged that she sometimes uses crack; says that numerous people in the building sell it. Patient does not know her medications. She accepted that she is on an antidepressant. She says that she was very sad when her mother but that she is starting to feel like she is getting better. Patient gave permission to speak with her daughter who is also her guardian -Patient's guardian and daughter said that patient has been getting increasingly more depressed since this summer, not attending to ADLs and has seemed more confused and forgetful. -patient amenable to increasing or adding antidepressant medication -Diarrhea has fully resolved. C diff/GI panel negative. Purchasing Administrative Assistant wonders if patient was taking increase dose of her home oxycodone prescription and on the unit, only being given 1 mg b.i.d., had some opiate withdrawal, triggering loose stool. Patient denies taking anymore than 1 mg b.i.d. 08/05 Patient reports that she is feeling better but agrees with the daughter that she has been very depressed over the past months and agrees to starting Wellbutrin. Purchasing Administrative Assistant discussed reasoning for starting this med with which she agreed. OT did [place] and patient scored 10/11. -starting Wellbutrin XR 150mg to address worsening depression and to help with executive functioning 08/06: continue current management and treatment plan. Plan: CV Q 15 minute checks STARTed Wellbutrin XR 150mg Continue home medication regimen Patient on Coumadin and INRs being checked daily C diff/GI panel negative Will get collateral Patient educated on diagnosis and medical condition Anxiety/MDD/Psychosis Treatment per psychiatric team History of mitral valve replacement on Coumadin/hypertension/hyperlipidemia/fluid overload related to rheumatic heart disease Continue Coumadin dosing per pharmacy recommendation Continue atorvastatin, Lasix, lisinopril daily Appears euvolemic on exam Vitals and labs were stable Chronic kidney disease Baseline 1.2 Avoid nephrotoxins Chronic arthralgias Takes oxycodone chronically Reason for continued inpatient stay Substantial Risk for: harm to self, inability to function and rapid decompensation Time Spent With Patient Time: Total time managing care of this patient today ____ minutes.
[2025-08-06 20:00] VITALS: BP 140/93; PULSE 63; RESP 15; TEMP 35.8; O2SAT 98
[2025-08-07 08:00] VITALS: BP 142/73; PULSE 71; RESP 18; TEMP 36.4; O2SAT 99
[2025-08-07] MEDS: Aspirin Enteric Coated 81 MG TABLET.DR PO (08:26)
[2025-08-07] MEDS: buPROPion HCl XL 150 MG TAB.ER.24H PO (08:27)
--- NOTE | 2025-08-07 09:33 | P.PNPSI_ITS ---
Subjective Subjective Date of Service: 08/07/25 Reason For Visit: Major Depression severe recurrent with psychosis Interim History: Met with patient; discussed with team. Pleasant. No diarrhea since yesterday. Reports her mood is positive. Seems upbeat. Denies SI. Mostly in room. Slept well. Mood: Good and thumbs up. Denies SI/HI/AVH. Review of Systems Review of Systems Denies any shortness of breath, chest pain, headaches, dysuria, abdominal pain or discomfort, nausea, vomiting or diarrhea. Denies fever or chills. Mental Status Exam Mental Status Exam Narrative: Pt is alert and oriented; behavior is isolative and mostly lying in bed and keeping herself however cooperative and friendly on approach; patient is not in distress; dressed in hospital attire with unkempt hair but adequate hygiene; mood is described as better and affect congruent, brighter, more calm; eye contact appropriate; Speech is normal rate, volume and prosody and not pressured; some psychomotor retardation present; thought process is goal directed, concrete; Thought content is on treatment; no paranoid ideations expressed; denies any SI/HI. Denies AVH Patients insight and judgment impaired Diagnostics Vital Signs (24Hr): Vital Signs - 24 hr 08/06/25 20:00 08/07/25 08:00 Temperature 96.4 F L 97.6 F Pulse Rate 63 71 Respiratory Rate 15 18 Blood Pressure 140/93 H 142/73 H Pulse Oximetry 98 99 Oxygen Delivery Method Room Air BMI result Body Mass Index 28.2 Labs 08/04/25 12:48 08/04/25 12:48 Medications Medications Current Medications Acetaminophen (Acetaminophen 325 Mg Tablet) 650 mg PO Q6H PRN PRN Reason: Headache/Pain, Scale 1-10 Last Admin: 08/03/25 06:11 Dose: 650 mg Al Hydroxide/Mg Hydroxide (Magnesium Hydrox/Alum Hydrox 30 Ml Oral.Susp) 30 ml PO Q6H PRN PRN Reason: Heartburn/Nausea Aspirin (Aspirin Enteric Coated 81 Mg Tablet.) 81 mg PO DAILY [facility] Last Admin: 08/07/25 08:26 Dose: 81 mg Atorvastatin Calcium (Atorvastatin Calcium 20 Mg Tablet) 20 mg PO DAILY [facility] Last Admin: 08/07/25 08:26 Dose: 20 mg Bupropion HCl (Bupropion Hcl Xl 150 Mg Tab.Er.24h) 150 mg PO DAILY [facility] Last Admin: 08/07/25 08:27 Dose: 150 mg Clonazepam (Clonazepam 0.5 Mg Tablet) 0.5 mg PO TID PRN PRN Reason: Anxiety Furosemide (Furosemide 20 Mg Tablet) 20 mg PO DAILY [facility]; Protocol Last Admin: 08/07/25 08:27 Dose: 20 mg Gabapentin (Gabapentin 300 Mg Capsule) 300 mg PO BID [facility] Last Admin: 08/07/25 08:27 Dose: 300 mg Hydroxyzine HCl (Hydroxyzine Hcl 25 Mg Tablet) 25 mg PO Q6H PRN PRN Reason: mild anxiety Last Admin: 08/05/25 21:40 Dose: 25 mg Lisinopril (Lisinopril 5 Mg Tablet) 5 mg PO DAILY [facility]; Protocol Last Admin: 08/07/25 08:26 Dose: 5 mg Loperamide HCl (Loperamide Hcl 2 Mg Capsule) 2 mg PO Q6H PRN PRN Reason: loose stool Last Admin: 08/06/25 10:27 Dose: 2 mg Magnesium Hydroxide (Milk Of Magnesia 30 Ml Oral.Susp) 30 ml PO DAILY PRN PRN Reason: Constipation Mirtazapine (Mirtazapine 7.5 Mg Tablet) 7.5 mg PO BEDTIME PRN PRN Reason: Sleep Nicotine (Nicotine 21 Mg Patch.Td24) 21 mg TRANSDERMA DAILY PRN PRN Reason: smoking cessation Nicotine Polacrilex (Nicotine Polacrilex 2 Mg Gum) 4 mg BUCCAL Q2H PRN PRN Reason: Nicotine Cravings Olanzapine (Olanzapine 2.5 Mg Tablet) 2.5 mg PO TID PRN PRN Reason: agitation Oxycodone HCl (Oxycodone Hcl Immed Release 5 Mg Tablet) 5 mg PO Q12H PRN PRN Reason: severe pain Paroxetine HCl (Paroxetine Hcl 30 Mg Tablet) 30 mg PO DAILY [facility] Last Admin: 08/07/25 08:27 Dose: 30 mg Trazodone HCl (Trazodone Hcl 50 Mg Tablet) 50 mg PO BEDTIME MRX1 PRN PRN Reason: Insomnia Warfarin Sodium (Warfarin Sodium 5 Mg Tablet) 5 mg PO DAILY@1800 [facility] Last Admin: 08/06/25 17:35 Dose: 5 mg Allergies Allergies Allergy/AdvReac Type Severity Reaction Status Date / Time No Known Allergies Allergy Verified 08/02/25 17:01 Assessment & Plan Assessment & Plan (1) MDD (major depressive disorder), recurrent severe, without psychosis: Status: Acute Code(s): F33.2 - Major depressive disorder, recurrent severe without psychotic features (2) HTN (hypertension): Status: Acute Code(s): I10 - Essential (primary) hypertension (3) Cocaine use disorder: Status: Acute Code(s): F14.10 - Cocaine abuse, uncomplicated Plan HPI: Patient is a 59-year-old female with history of anxiety, MDD, heart valve replacement on Coumadin, HTN, HLD, CKD, CVA(?), chronic back pain prescribed oxycodone, who presented to the ED following suicidal gesture in the face of ongoing depression. On 08/02 Patient reported being depressed since her mother 4 months ago, saying she just sleeps all the time. She said that she cut herself, indicating her arm (which has only superficial scratches) saying that she wanted to hurt herself but did not want to . Patient acknowledged that she took more medication than usual but denies that this was in any way a suicide attempt, saying she just wanted to sleep. She denies AVH; denies substance abuse; she is prescribed oxycodone however U tox was also positive for cocaine. Fly Raiser Lockstitch attempted to meet with patient again on 08/03 to further clarify at assess however patient having ongoing diarrhea which kept interrupting ability to have a formal conversation. Patient reports that she has a guardian, her daughter Shani Formulation/clinical reasoning: Reports worsening depression in the face of losing her mother. She is on Paxil 30 mg. Her full history is unclear as patient was not able to participate further due to diarrheal illness. Will continue home medication regimen for now. Collecting stool samples to rule out C diff. on the unit, patient had some behaviors that were hard to understand such as holding her feces in her hand and offering it to 1 of the counselors; being cleaned up in the bathroom with nurse to returned finding feces smeared all over her clothing; not sure if patient was trying to clean herself and was unable to (she uses a walker; possible history of CVA) or if this represents disorganization. Hospital course: 08/04 Patient said she is feeling better. 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 She denies any SI at all. She at 1st denied but then acknowledged that she sometimes uses crack; says that numerous people in the building sell it. Patient does not know her medications. She accepted that she is on an antidepressant. She says that she was very sad when her mother but that she is starting to feel like she is getting better. Patient gave permission to speak with her daughter who is also her guardian -Patient's guardian and daughter said that patient has been getting increasingly more depressed since this summer, not attending to ADLs and has seemed more confused and forgetful. -patient amenable to increasing or adding antidepressant medication -Diarrhea has fully resolved. C diff/GI panel negative. Fly Raiser Lockstitch wonders if patient was taking increase dose of her home oxycodone prescription and on the unit, only being given 1 mg b.i.d., had some opiate withdrawal, triggering loose stool. Patient denies taking anymore than 1 mg b.i.d. 08/05 Patient reports that she is feeling better but agrees with the daughter that she has been very depressed over the past months and agrees to starting Wellbutrin. Fly Raiser Lockstitch discussed reasoning for starting this med with which she agreed. OT did [place] and patient scored 10/11. -starting Wellbutrin XR 150mg to address worsening depression and to help with executive functioning 08/06: continue current management and treatment plan. 08/07: continue current management and treatment plan. Plan: CV Q 15 minute checks STARTed Wellbutrin XR 150mg Continue home medication regimen Patient on Coumadin and INRs being checked daily C diff/GI panel negative Will get collateral Patient educated on diagnosis and medical condition Anxiety/MDD/Psychosis Treatment per psychiatric team History of mitral valve replacement on Coumadin/hypertension/hyperlipidemia/fluid overload related to rheumatic heart disease Continue Coumadin dosing per pharmacy recommendation Continue atorvastatin, Lasix, lisinopril daily Appears euvolemic on exam Vitals and labs were stable Chronic kidney disease Baseline 1.2 Avoid nephrotoxins Chronic arthralgias Takes oxycodone chronically Reason for continued inpatient stay Substantial Risk for: inability to function and rapid decompensation Time Spent With Patient Time: Total time managing care of this patient today ____ minutes.
[2025-08-07 09:45] LABS: INTERNATIONAL NORM RATIO 3.3 (0.9-1.1); Prothrombin Time 37.4 SEC (10.9-12.4)
[2025-08-07 20:00] VITALS: BP 148/81; PULSE 65; RESP 15; TEMP 37.7; O2SAT 98
[2025-08-08 07:44] VITALS: BP 145/76; PULSE 73; RESP 16; TEMP 36.9; O2SAT 99
[2025-08-08 08:02] LABS: INTERNATIONAL NORM RATIO 3.2 (0.9-1.1); Prothrombin Time 37.3 SEC (10.9-12.4)
[2025-08-08] MEDS: buPROPion HCl XL 150 MG TAB.ER.24H PO (08:12)
[2025-08-08] MEDS: Aspirin Enteric Coated 81 MG TABLET.DR PO (08:12)
--- NOTE | 2025-08-08 16:03 | P.PNPSI_ITS ---
Subjective Subjective Date of Service: 08/08/25 Reason For Visit: Major Depression severe recurrent with psychosis Interim History: Met with patient; discussed with team; patient seen with pizzamaker Moni Patient sitting with her brother on approach. She says she is feeling much better and that depression is gone. Discussed how the of her mother was a significant factor in her depression but she is feeling over that now. Her brother, who knows her well and is 1 of her ob/gyn doctor concurred that she seems back to her regular self. Mental Status Exam Mental Status Exam Narrative: Pt is alert and oriented; behavior is cooperative, friendly and calm; patient is not in distress; dressed in casual attire with unkempt hair but adequate hygiene; mood is described as good and affect congruent; eye contact appropriate; Speech is normal rate, volume and prosody and not pressured; no psychomotor agitation/retardation present; thought process is organized and goal directed; Thought content is on going home; otherwise pertinent to relevant topics and without any delusional content, paranoid ideations or grandiosity; denies any SI/HI. Denies AVH and there is no evidence of perceptual disturbance. Patients insight and judgment at baseline Diagnostics Vital Signs (24Hr): Vital Signs - 24 hr 08/07/25 20:00 08/08/25 07:44 Temperature 99.9 F 98.4 F Pulse Rate 65 73 Respiratory Rate 15 16 Blood Pressure 148/81 H 145/76 H Pulse Oximetry 98 99 Oxygen Delivery Method Room Air BMI result Body Mass Index 28.2 Labs 08/04/25 12:48 08/04/25 12:48 Labs: Laboratory Results - last 48 hr 08/07/25 08/08/25 09:27 07:50 PT 37.4 H 37.3 H INR 3.3 H 3.2 H Medications Medications Current Medications Acetaminophen (Acetaminophen 325 Mg Tablet) 650 mg PO Q6H PRN PRN Reason: Headache/Pain, Scale 1-10 Last Admin: 08/03/25 06:11 Dose: 650 mg Al Hydroxide/Mg Hydroxide (Magnesium Hydrox/Alum Hydrox 30 Ml Oral.Susp) 30 ml PO Q6H PRN PRN Reason: Heartburn/Nausea Aspirin (Aspirin Enteric Coated 81 Mg Tablet.) 81 mg PO DAILY [facility] Last Admin: 08/08/25 08:12 Dose: 81 mg Atorvastatin Calcium (Atorvastatin Calcium 20 Mg Tablet) 20 mg PO DAILY [facility] Last Admin: 08/08/25 08:11 Dose: 20 mg Bupropion HCl (Bupropion Hcl Xl 150 Mg Tab.Er.24h) 150 mg PO DAILY [facility] Last Admin: 08/08/25 08:12 Dose: 150 mg Clonazepam (Clonazepam 0.5 Mg Tablet) 0.5 mg PO TID PRN PRN Reason: moderate anxiety Furosemide (Furosemide 20 Mg Tablet) 20 mg PO DAILY [facility]; Protocol Last Admin: 08/08/25 08:11 Dose: 20 mg Gabapentin (Gabapentin 300 Mg Capsule) 300 mg PO BID [facility] Last Admin: 08/08/25 08:12 Dose: 300 mg Hydroxyzine HCl (Hydroxyzine Hcl 25 Mg Tablet) 25 mg PO Q6H PRN PRN Reason: mild anxiety Last Admin: 08/05/25 21:40 Dose: 25 mg Lisinopril (Lisinopril 5 Mg Tablet) 5 mg PO DAILY [facility]; Protocol Last Admin: 08/08/25 08:11 Dose: 5 mg Loperamide HCl (Loperamide Hcl 2 Mg Capsule) 2 mg PO Q6H PRN PRN Reason: loose stool Last Admin: 08/06/25 10:27 Dose: 2 mg Magnesium Hydroxide (Milk Of Magnesia 30 Ml Oral.Susp) 30 ml PO DAILY PRN PRN Reason: Constipation Mirtazapine (Mirtazapine 7.5 Mg Tablet) 7.5 mg PO BEDTIME PRN PRN Reason: Sleep Nicotine (Nicotine 21 Mg Patch.Td24) 21 mg TRANSDERMA DAILY PRN PRN Reason: smoking cessation Nicotine Polacrilex (Nicotine Polacrilex 2 Mg Gum) 4 mg BUCCAL Q2H PRN PRN Reason: Nicotine Cravings Olanzapine (Olanzapine 2.5 Mg Tablet) 2.5 mg PO TID PRN PRN Reason: agitation Oxycodone HCl (Oxycodone Hcl Immed Release 5 Mg Tablet) 5 mg PO Q12H PRN PRN Reason: severe pain Paroxetine HCl (Paroxetine Hcl 30 Mg Tablet) 30 mg PO DAILY [facility] Last Admin: 08/08/25 08:11 Dose: 30 mg Trazodone HCl (Trazodone Hcl 50 Mg Tablet) 50 mg PO BEDTIME MRX1 PRN PRN Reason: Insomnia Warfarin Sodium (Warfarin Sodium 5 Mg Tablet) 5 mg PO DAILY@1800 [facility] Last Admin: 08/07/25 17:32 Dose: 5 mg Allergies Allergies Allergy/AdvReac Type Severity Reaction Status Date / Time No Known Allergies Allergy Verified 08/02/25 17:01 Assessment & Plan Assessment & Plan (1) MDD (major depressive disorder), recurrent severe, without psychosis: Status: Acute Code(s): F33.2 - Major depressive disorder, recurrent severe without psychotic features (2) HTN (hypertension): Status: Acute Code(s): I10 - Essential (primary) hypertension (3) Cocaine use disorder: Status: Acute Code(s): F14.10 - Cocaine abuse, uncomplicated Plan HPI: Patient is a 59-year-old female with history of anxiety, MDD, heart valve replacement on Coumadin, HTN, HLD, CKD, CVA(?), chronic back pain prescribed oxycodone, who presented to the ED following suicidal gesture in the face of ongoing depression. On 08/02 Patient reported being depressed since her mother 4 months ago, saying she just sleeps all the time. She said that she cut herself, indicating her arm (which has only superficial scratches) saying that she wanted to hurt herself but did not want to . Patient acknowledged that she took more medication than usual but denies that this was in any way a suicide attempt, saying she just wanted to sleep. She denies AVH; denies substance abuse; she is prescribed oxycodone however U tox was also positive for cocaine. Paintings Restorer attempted to meet with patient again on 08/03 to further clarify at assess however patient having ongoing diarrhea which kept interrupting ability to have a formal conversation. Patient reports that she has a guardian, her daughter Shani Formulation/clinical reasoning: Reports worsening depression in the face of losing her mother. She is on Paxil 30 mg. Her full history is unclear as patient was not able to participate further due to diarrheal illness. Will continue home medication regimen for now. Collecting stool samples to rule out C diff. on the unit, patient had some behaviors that were hard to understand such as holding her feces in her hand and offering it to 1 of the counselors; being cleaned up in the bathroom with nurse to returned finding feces smeared all over her clothing; not sure if patient was trying to clean herself and was unable to (she uses a walker; possible history of CVA) or if this represents disorganization. Hospital course: 08/04 Patient said she is feeling better. Described episode leading up to admission where she was feeling distraught and cut her arm, showing director underwriter sales of superficial scratches on her right forearm. She denies any SI at all. She at 1st denied but then acknowledged that she sometimes uses crack; says that numerous people in the building sell it. Patient does not know her medications. She accepted that she is on an antidepressant. She says that she was very sad when her mother but that she is starting to feel like she is getting better. Patient gave permission to speak with her daughter who is also her guardian -Patient's guardian and daughter said that patient has been getting increasingly more depressed since this summer, not attending to ADLs and has seemed more confused and forgetful. -patient amenable to increasing or adding antidepressant medication -Diarrhea has fully resolved. C diff/GI panel negative. Paintings Restorer wonders if patient was taking increase dose of her home oxycodone prescription and on the unit, only being given 1 mg b.i.d., had some opiate withdrawal, triggering loose stool. Patient denies taking anymore than 1 mg b.i.d. 08/05 Patient reports that she is feeling better but agrees with the daughter that she has been very depressed over the past months and agrees to starting Wellbutrin. Paintings Restorer discussed reasoning for starting this med with which she agreed. OT did [place] and patient scored 10/11. -starting Wellbutrin XR 150mg to address worsening depression and to help with executive functioning 08/08 patient's mood is significantly improved and she reports depression gone. Patient's brother present who agrees that she is back to her regular self Patient seems to have some underlying cognitive dysfunction and team is discussing with her daughter appropriate aftercare as it is not clear that patient is able to care for herself on her own Plan: CV Q 15 minute checks Continue Wellbutrin XR 150mg Continue home medication regimen Patient on Coumadin and INRs being checked daily C diff/GI panel negative Will get collateral Patient educated on diagnosis and medical condition Anxiety/MDD/Psychosis Treatment per psychiatric team History of mitral valve replacement on Coumadin/hypertension/hyperlipidemia/fluid overload related to rheumatic heart disease Continue Coumadin dosing per pharmacy recommendation Continue atorvastatin, Lasix, lisinopril daily Appears euvolemic on exam Vitals and labs were stable Chronic kidney disease Baseline 1.2 Avoid nephrotoxins Chronic arthralgias Takes oxycodone chronically Patient educated on: diagnosis and medication risk/benefits Informed Consent: understands, does not understand and further education needed Reason for continued inpatient stay Substantial Risk for: med/psych decompensation Time Spent With Patient Time: Total time managing care of this patient today ____ minutes.
[2025-08-08 19:40] VITALS: BP 135/76; PULSE 88; RESP 16; TEMP 36.6; O2SAT 96
[2025-08-09 08:11] LABS: INTERNATIONAL NORM RATIO 2.8 (0.9-1.1); Prothrombin Time 32.5 SEC (10.9-12.4)
[2025-08-09 08:54] VITALS: BP 129/74; PULSE 68; RESP 16; TEMP 36.9; O2SAT 98
[2025-08-09] MEDS: buPROPion HCl XL 150 MG TAB.ER.24H PO (08:56)
[2025-08-09] MEDS: Aspirin Enteric Coated 81 MG TABLET.DR PO (08:56)
[2025-08-09] MEDS: oxyCODONE HCl Immed Release 5 MG TABLET PO (09:25)
[2025-08-09 19:48] VITALS: BP 141/63; PULSE 64; RESP 18; TEMP 36.8; O2SAT 98
--- NOTE | 2025-08-09 23:11 | HO.PSYCHPN ---
Subjective Subjective Date of Service: 08/09/25 Reason For Visit: Major Depression severe recurrent with psychosis Interim History: met with pt; discussed in team; seen with devika [place] pt reports she's doing good and denies depression. Says feeling like regular self and would like to go home. She agrees to remain for family meeting tomorrow with her daughter/guardian Mental Status Exam Mental Status Exam Narrative: Pt is alert and oriented; behavior is cooperative, friendly and calm; patient is not in distress; dressed in casual attire with unkempt hair but adequate hygiene; mood is described as good and affect congruent; eye contact appropriate; Speech is normal rate, volume and prosody and not pressured; no psychomotor agitation/retardation present; thought process is organized and goal directed; Thought content is on going home; otherwise pertinent to relevant topics and without any delusional content, paranoid ideations or grandiosity; denies any SI/HI. Denies AVH and there is no evidence of perceptual disturbance. Patients insight and judgment at baseline Diagnostics Vital Signs (24Hr): Vital Signs - 24 hr 08/09/25 08:54 08/09/25 19:48 Temperature 98.4 F 98.2 F Pulse Rate 68 64 Respiratory Rate 16 18 Blood Pressure 129/74 141/63 H Pulse Oximetry 98 98 Oxygen Delivery Method Room Air Room Air BMI result Body Mass Index 28.2 Labs 08/04/25 12:48 08/04/25 12:48 Labs: Laboratory Results - last 48 hr 08/08/25 08/09/25 07:50 07:46 PT 37.3 H 32.5 H INR 3.2 H 2.8 H Medications Medications Current Medications Acetaminophen (Acetaminophen 325 Mg Tablet) 650 mg PO Q6H PRN PRN Reason: Headache/Pain, Scale 1-10 Last Admin: 08/03/25 06:11 Dose: 650 mg Al Hydroxide/Mg Hydroxide (Magnesium Hydrox/Alum Hydrox 30 Ml Oral.Susp) 30 ml PO Q6H PRN PRN Reason: Heartburn/Nausea Aspirin (Aspirin Enteric Coated 81 Mg Tablet.) 81 mg PO DAILY [facility] Last Admin: 08/09/25 08:56 Dose: 81 mg Atorvastatin Calcium (Atorvastatin Calcium 20 Mg Tablet) 20 mg PO DAILY [facility] Last Admin: 08/09/25 08:57 Dose: 20 mg Bupropion HCl (Bupropion Hcl Xl 150 Mg Tab.Er.24h) 150 mg PO DAILY [facility] Last Admin: 08/09/25 08:56 Dose: 150 mg Clonazepam (Clonazepam 0.5 Mg Tablet) 0.5 mg PO TID PRN PRN Reason: moderate anxiety Furosemide (Furosemide 20 Mg Tablet) 20 mg PO DAILY [facility]; Protocol Last Admin: 08/09/25 08:55 Dose: 20 mg Gabapentin (Gabapentin 300 Mg Capsule) 300 mg PO BID [facility] Last Admin: 08/09/25 22:31 Dose: 300 mg Hydroxyzine HCl (Hydroxyzine Hcl 25 Mg Tablet) 25 mg PO Q6H PRN PRN Reason: mild anxiety Last Admin: 08/05/25 21:40 Dose: 25 mg Lisinopril (Lisinopril 5 Mg Tablet) 5 mg PO DAILY [facility]; Protocol Last Admin: 08/09/25 08:56 Dose: 5 mg Loperamide HCl (Loperamide Hcl 2 Mg Capsule) 2 mg PO Q6H PRN PRN Reason: loose stool Last Admin: 08/06/25 10:27 Dose: 2 mg Magnesium Hydroxide (Milk Of Magnesia 30 Ml Oral.Susp) 30 ml PO DAILY PRN PRN Reason: Constipation Mirtazapine (Mirtazapine 7.5 Mg Tablet) 7.5 mg PO BEDTIME PRN PRN Reason: Sleep Nicotine (Nicotine 21 Mg Patch.Td24) 21 mg TRANSDERMA DAILY PRN PRN Reason: smoking cessation Nicotine Polacrilex (Nicotine Polacrilex 2 Mg Gum) 4 mg BUCCAL Q2H PRN PRN Reason: Nicotine Cravings Olanzapine (Olanzapine 2.5 Mg Tablet) 2.5 mg PO TID PRN PRN Reason: agitation Oxycodone HCl (Oxycodone Hcl Immed Release 5 Mg Tablet) 5 mg PO Q12H PRN PRN Reason: severe pain Last Admin: 08/09/25 09:25 Dose: 5 mg Paroxetine HCl (Paroxetine Hcl 30 Mg Tablet) 30 mg PO DAILY [facility] Last Admin: 08/09/25 08:56 Dose: 30 mg Trazodone HCl (Trazodone Hcl 50 Mg Tablet) 50 mg PO BEDTIME MRX1 PRN PRN Reason: Insomnia Warfarin Sodium (Warfarin Sodium 5 Mg Tablet) 5 mg PO DAILY@1800 [facility] Last Admin: 08/09/25 17:53 Dose: 5 mg Allergies Allergies Allergy/AdvReac Type Severity Reaction Status Date / Time No Known Allergies Allergy Verified 08/02/25 17:01 Assessment & Plan Assessment & Plan (1) MDD (major depressive disorder), recurrent severe, without psychosis: Status: Acute Code(s): F33.2 - Major depressive disorder, recurrent severe without psychotic features (2) HTN (hypertension): Status: Acute Code(s): I10 - Essential (primary) hypertension (3) Cocaine use disorder: Status: Acute Code(s): F14.10 - Cocaine abuse, uncomplicated Plan HPI: Patient is a 59-year-old female with history of anxiety, MDD, heart valve replacement on Coumadin, HTN, HLD, CKD, CVA(?), chronic back pain prescribed oxycodone, who presented to the ED following suicidal gesture in the face of ongoing depression. On 08/02 Patient reported being depressed since her mother 4 months ago, saying she just sleeps all the time. She said that she cut herself, indicating her arm (which has only superficial scratches) saying that she wanted to hurt herself but did not want to . Patient acknowledged that she took more medication than usual but denies that this was in any way a suicide attempt, saying she just wanted to sleep. She denies AVH; denies substance abuse; she is prescribed oxycodone however U tox was also positive for cocaine. Photographic Plate Maker attempted to meet with patient again on 08/03 to further clarify at assess however patient having ongoing diarrhea which kept interrupting ability to have a formal conversation. Patient reports that she has a guardian, her daughter Shani Formulation/clinical reasoning: Reports worsening depression in the face of losing her mother. She is on Paxil 30 mg. Her full history is unclear as patient was not able to participate further due to diarrheal illness. Will continue home medication regimen for now. Collecting stool samples to rule out C diff. on the unit, patient had some behaviors that were hard to understand such as holding her feces in her hand and offering it to 1 of the counselors; being cleaned up in the bathroom with nurse to returned finding feces smeared all over her clothing; not sure if patient was trying to clean herself and was unable to (she uses a walker; possible history of CVA) or if this represents disorganization. Hospital course: 08/04 Patient said she is feeling better. Described episode leading up to admission where she was feeling distraught and cut her arm, showing automotive service writer of superficial scratches on her right forearm. She denies any SI at all. She at 1st denied but then acknowledged that she sometimes uses crack; says that numerous people in the building sell it. Patient does not know her medications. She accepted that she is on an antidepressant. She says that she was very sad when her mother but that she is starting to feel like she is getting better. Patient gave permission to speak with her daughter who is also her guardian -Patient's guardian and daughter said that patient has been getting increasingly more depressed since this summer, not attending to ADLs and has seemed more confused and forgetful. -patient amenable to increasing or adding antidepressant medication -Diarrhea has fully resolved. C diff/GI panel negative. Photographic Plate Maker wonders if patient was taking increase dose of her home oxycodone prescription and on the unit, only being given 1 mg b.i.d., had some opiate withdrawal, triggering loose stool. Patient denies taking anymore than 1 mg b.i.d. 08/05 Patient reports that she is feeling better but agrees with the daughter that she has been very depressed over the past months and agrees to starting Wellbutrin. Photographic Plate Maker discussed reasoning for starting this med with which she agreed. OT did [place] and patient scored 10/11. -starting Wellbutrin XR 150mg to address worsening depression and to help with executive functioning 08/08 patient's mood is significantly improved and she reports depression gone. Patient's brother present who agrees that she is back to her regular self Patient seems to have some underlying cognitive dysfunction and team is discussing with her daughter appropriate aftercare as it is not clear that patient is able to care for herself on her own 08/09 pt reports she's doing good and denies depression. Says feeling like regular self and would like to go home. She agrees to remain for family meeting tomorrow with her daughter/guardian -will leave med regimen as is for now and see daughters perspective; need to set up aftercare Plan: CV Q 15 minute checks Continue Wellbutrin XR 150mg Continue home medication regimen Patient on Coumadin and INRs being checked daily C diff/GI panel negative Will get collateral Patient educated on diagnosis and medical condition Anxiety/MDD/Psychosis Treatment per psychiatric team History of mitral valve replacement on Coumadin/hypertension/hyperlipidemia/fluid overload related to rheumatic heart disease Continue Coumadin dosing per pharmacy recommendation Continue atorvastatin, Lasix, lisinopril daily Appears euvolemic on exam Vitals and labs were stable Chronic kidney disease Baseline 1.2 Avoid nephrotoxins Chronic arthralgias Takes oxycodone chronically Patient educated on: diagnosis and medication risk/benefits Informed Consent: understands, does not understand and further education needed Reason for continued inpatient stay Substantial Risk for: inability to function, stable for discharge and med/psych decompensation Time Spent With Patient Time: Total time managing care of this patient today ____ minutes.
[2025-08-10 08:00] VITALS: BP 150/67; PULSE 82; RESP 18; TEMP 36.6; O2SAT 98
[2025-08-10 08:06] LABS: INTERNATIONAL NORM RATIO 2.3 (0.9-1.1); Prothrombin Time 26.4 SEC (10.9-12.4)
[2025-08-10] MEDS: buPROPion HCl XL 150 MG TAB.ER.24H PO (08:14)
[2025-08-10] MEDS: Aspirin Enteric Coated 81 MG TABLET.DR PO (08:14)
--- NOTE | 2025-08-10 18:06 | P.PNPSI_ITS ---
Subjective Subjective Date of Service: 08/10/25 Reason For Visit: Major Depression severe recurrent with psychosis Interim History: Met with patient; discussed with team; met with patient's daughter; seen with electrode cleaning machine operator Josselin Patient reports she remains doing much better, good mood and feeling like her regular self. Daughter agrees that patient is doing much better and agrees patient is back to regular self. Discussed aftercare and need for locked box which has been obtain; discussed safety at home with medications and agricultural engineering technologist which are also her brothers will continue to put medications available for her but will keep the remainders in the locked box so patient misuse. Discussed substance abuse and patient's daughter is finding her a new place to live as there is considerable drug trafficking in that building. Mental Status Exam Mental Status Exam Narrative: Pt is alert and oriented; behavior is cooperative, friendly and calm; patient is not in distress; dressed in casual attire with unkempt hair but adequate hygiene; mood is described as good and affect congruent; eye contact appropriate; Speech is normal rate, volume and prosody and not pressured; no psychomotor agitation/retardation present; thought process is organized and goal directed; Thought content is on going home; otherwise pertinent to relevant topics and without any delusional content, paranoid ideations or grandiosity; denies any SI/HI. Denies AVH and there is no evidence of perceptual disturbance. Patients insight and judgment at baseline Diagnostics Vital Signs (24Hr): Vital Signs - 24 hr 08/09/25 19:48 08/10/25 08:00 Temperature 98.2 F 97.8 F Pulse Rate 64 82 Respiratory Rate 18 18 Blood Pressure 141/63 H 150/67 H Pulse Oximetry 98 98 Oxygen Delivery Method Room Air Room Air BMI result Body Mass Index 28.2 Labs 08/04/25 12:48 08/04/25 12:48 Labs: Laboratory Results - last 48 hr 08/09/25 08/10/25 07:46 07:43 PT 32.5 H 26.4 H INR 2.8 H 2.3 H Medications Medications Current Medications Acetaminophen (Acetaminophen 325 Mg Tablet) 650 mg PO Q6H PRN PRN Reason: Headache/Pain, Scale 1-10 Last Admin: 08/03/25 06:11 Dose: 650 mg Al Hydroxide/Mg Hydroxide (Magnesium Hydrox/Alum Hydrox 30 Ml Oral.Susp) 30 ml PO Q6H PRN PRN Reason: Heartburn/Nausea Aspirin (Aspirin Enteric Coated 81 Mg Tablet.) 81 mg PO DAILY [facility] Last Admin: 08/10/25 08:14 Dose: 81 mg Atorvastatin Calcium (Atorvastatin Calcium 20 Mg Tablet) 20 mg PO DAILY [facility] Last Admin: 08/10/25 08:15 Dose: 20 mg Bupropion HCl (Bupropion Hcl Xl 150 Mg Tab.Er.24h) 150 mg PO DAILY [facility] Last Admin: 08/10/25 08:14 Dose: 150 mg Clonazepam (Clonazepam 0.5 Mg Tablet) 0.5 mg PO TID PRN PRN Reason: moderate anxiety Furosemide (Furosemide 20 Mg Tablet) 20 mg PO DAILY [facility]; Protocol Last Admin: 08/10/25 08:15 Dose: 20 mg Gabapentin (Gabapentin 300 Mg Capsule) 300 mg PO BID [facility] Last Admin: 08/10/25 08:14 Dose: 300 mg Hydroxyzine HCl (Hydroxyzine Hcl 25 Mg Tablet) 25 mg PO Q6H PRN PRN Reason: mild anxiety Last Admin: 08/05/25 21:40 Dose: 25 mg Lisinopril (Lisinopril 5 Mg Tablet) 5 mg PO DAILY [facility]; Protocol Last Admin: 08/10/25 08:14 Dose: 5 mg Loperamide HCl (Loperamide Hcl 2 Mg Capsule) 2 mg PO Q6H PRN PRN Reason: loose stool Last Admin: 08/06/25 10:27 Dose: 2 mg Magnesium Hydroxide (Milk Of Magnesia 30 Ml Oral.Susp) 30 ml PO DAILY PRN PRN Reason: Constipation Mirtazapine (Mirtazapine 7.5 Mg Tablet) 7.5 mg PO BEDTIME PRN PRN Reason: Sleep Nicotine (Nicotine 21 Mg Patch.Td24) 21 mg TRANSDERMA DAILY PRN PRN Reason: smoking cessation Nicotine Polacrilex (Nicotine Polacrilex 2 Mg Gum) 4 mg BUCCAL Q2H PRN PRN Reason: Nicotine Cravings Olanzapine (Olanzapine 2.5 Mg Tablet) 2.5 mg PO TID PRN PRN Reason: agitation Oxycodone HCl (Oxycodone Hcl Immed Release 5 Mg Tablet) 5 mg PO Q12H PRN PRN Reason: severe pain Last Admin: 08/09/25 09:25 Dose: 5 mg Paroxetine HCl (Paroxetine Hcl 30 Mg Tablet) 30 mg PO DAILY [facility] Last Admin: 08/10/25 08:14 Dose: 30 mg Trazodone HCl (Trazodone Hcl 50 Mg Tablet) 50 mg PO BEDTIME MRX1 PRN PRN Reason: Insomnia Warfarin Sodium (Warfarin Sodium 5 Mg Tablet) 5 mg PO DAILY@1800 [facility] Last Admin: 08/10/25 17:30 Dose: 5 mg Allergies Allergies Allergy/AdvReac Type Severity Reaction Status Date / Time No Known Allergies Allergy Verified 08/02/25 17:01 Assessment & Plan Assessment & Plan (1) MDD (major depressive disorder), recurrent severe, without psychosis: Status: Acute Code(s): F33.2 - Major depressive disorder, recurrent severe without psychotic features (2) HTN (hypertension): Status: Acute Code(s): I10 - Essential (primary) hypertension (3) Cocaine use disorder: Status: Acute Code(s): F14.10 - Cocaine abuse, uncomplicated Plan HPI: Patient is a 59-year-old female with history of anxiety, MDD, heart valve replacement on Coumadin, HTN, HLD, CKD, CVA(?), chronic back pain prescribed oxycodone, who presented to the ED following suicidal gesture in the face of ongoing depression. On 08/02 Patient reported being depressed since her mother 4 months ago, saying she just sleeps all the time. She said that she cut herself, indicating her arm (which has only superficial scratches) saying that she wanted to hurt herself but did not want to . Patient acknowledged that she took more medication than usual but denies that this was in any way a suicide attempt, saying she just wanted to sleep. She denies AVH; denies substance abuse; she is prescribed oxycodone however U tox was also positive for cocaine. Manager Integration attempted to meet with patient again on 08/03 to further clarify at assess however patient having ongoing diarrhea which kept interrupting ability to have a formal conversation. Patient reports that she has a guardian, her daughter Shani Formulation/clinical reasoning: Reports worsening depression in the face of losing her mother. She is on Paxil 30 mg. Her full history is unclear as patient was not able to participate further due to diarrheal illness. Will continue home medication regimen for now. Collecting stool samples to rule out C diff. on the unit, patient had some behaviors that were hard to understand such as holding her feces in her hand and offering it to 1 of the counselors; being cleaned up in the bathroom with nurse to returned finding feces smeared all over her clothing; not sure if patient was trying to clean herself and was unable to (she uses a walker; possible history of CVA) or if this represents disorganization. Hospital course: 08/04 Patient said she is feeling better. Described episode leading up to admission where she was feeling distraught and cut her arm, showing grant writer of superficial scratches on her right forearm. She denies any SI at all. She at denied but then acknowledged that she sometimes uses crack; says that numerous people in the building sell it. Patient does not know her medications. She accepted that she is on an antidepressant. She says that she was very sad when her mother but that she is starting to feel like she is getting better. Patient gave permission to speak with her daughter who is also her guardian -Patient's guardian and daughter said that patient has been getting increasingly more depressed since this summer, not attending to ADLs and has seemed more confused and forgetful. -patient amenable to increasing or adding antidepressant medication -Diarrhea has fully resolved. C diff/GI panel negative. Manager Integration wonders if patient was taking increase dose of her home oxycodone prescription and on the unit, only being given 1 mg b.i.d., had some opiate withdrawal, triggering loose stool. Patient denies taking anymore than 1 mg b.i.d. 08/05 Patient reports that she is feeling better but agrees with the daughter that she has been very depressed over the past months and agrees to starting Wellbutrin. Manager Integration discussed reasoning for starting this med with which she agreed. OT did [place] and patient scored 10/11. -starting Wellbutrin XR 150mg to address worsening depression and to help with executive functioning 08/08 patient's mood is significantly improved and she reports depression gone. Patient's brother present who agrees that she is back to her regular self Patient seems to have some underlying cognitive dysfunction and team is discussing with her daughter appropriate aftercare as it is not clear that patient is able to care for herself on her own 08/09 pt reports she's doing good and denies depression. Says feeling like regular self and would like to go home. She agrees to remain for family meeting tomorrow with her daughter/guardian -will leave med regimen as is for now and see daughters perspective; need to set up aftercare 08/10 patient remains doing better, improved mood; daughter agrees patient is back to regular self; setting up aftercare and feeling note guardian paperwork Manager Integration agrees that given patient's presentation and history, she requires guardianship level care to help her make medical decisions and other decisions regarding her safety and well-being Plan: CV Q 15 minute checks Continue Wellbutrin XR 150mg Continue home medication regimen Patient on Coumadin and INRs being checked daily C diff/GI panel negative Will get collateral Patient educated on diagnosis and medical condition Anxiety/MDD/Psychosis Treatment per psychiatric team History of mitral valve replacement on Coumadin/hypertension/hyperlipidemia/fluid overload related to rheumatic heart disease Continue Coumadin dosing per pharmacy recommendation Continue atorvastatin, Lasix, lisinopril daily Appears euvolemic on exam Vitals and labs were stable Chronic kidney disease Baseline 1.2 Avoid nephrotoxins Chronic arthralgias Takes oxycodone chronically Patient educated on: diagnosis, medication risk/benefits and therapeutic strategies Guardian/Caregiver educated on: substance abuse Informed Consent: understands, does not understand and further education needed Reason for continued inpatient stay Substantial Risk for: med/psych decompensation Time Spent With Patient Time: Total time managing care of this patient today ____ minutes.
[2025-08-10 20:00] VITALS: BP 120/70; PULSE 89; RESP 18; TEMP 36.8; O2SAT 99
[2025-08-10] MEDS: oxyCODONE HCl Immed Release 5 MG TABLET PO (21:56)
[2025-08-11 07:00] VITALS: BMI 28.2
[2025-08-11 08:21] LABS: INTERNATIONAL NORM RATIO 2.5 (0.9-1.1); Prothrombin Time 28.5 SEC (10.9-12.4)
[2025-08-11] MEDS: buPROPion HCl XL 150 MG TAB.ER.24H PO (09:05)
[2025-08-11] MEDS: Aspirin Enteric Coated 81 MG TABLET.DR PO (09:05)
[2025-08-11 09:21] VITALS: BP 124/56; PULSE 70; RESP 16; TEMP 36.7; O2SAT 97
--- NOTE | 2025-08-11 17:16 | HO.PSYCHPN ---
Subjective Subjective Date of Service: 08/11/25 Reason For Visit: Major Depression severe recurrent with psychosis Interim History: Patient; discussed with team Remains doing better; agreeable to remain for discharge planning so she can have a safe return to the [facility] Mental Status Exam Mental Status Exam Narrative: Pt is alert and oriented; behavior is cooperative, friendly and calm; patient is not in distress; dressed in casual attire with unkempt hair but adequate hygiene; mood is described as good and affect congruent; eye contact appropriate; Speech is normal rate, volume and prosody and not pressured; no psychomotor agitation/retardation present; thought process is organized and goal directed; Thought content is on going home; otherwise pertinent to relevant topics and without any delusional content, paranoid ideations or grandiosity; denies any SI/HI. Denies AVH and there is no evidence of perceptual disturbance. Patients insight and judgment at baseline Diagnostics Vital Signs (24Hr): Vital Signs - 24 hr 08/10/25 20:00 08/11/25 09:21 Temperature 98.2 F 98.0 F Pulse Rate 89 70 Respiratory Rate 18 16 Blood Pressure 120/70 124/56 L Pulse Oximetry 99 97 Oxygen Delivery Method Room Air Room Air BMI result Body Mass Index 28.2 Labs 08/04/25 12:48 08/04/25 12:48 Labs: Laboratory Results - last 48 hr 08/10/25 08/11/25 07:43 07:48 PT 26.4 H 28.5 H INR 2.3 H 2.5 H Medications Medications Current Medications Acetaminophen (Acetaminophen 325 Mg Tablet) 650 mg PO Q6H PRN PRN Reason: Headache/Pain, Scale 1-10 Last Admin: 08/03/25 06:11 Dose: 650 mg Al Hydroxide/Mg Hydroxide (Magnesium Hydrox/Alum Hydrox 30 Ml Oral.Susp) 30 ml PO Q6H PRN PRN Reason: Heartburn/Nausea Aspirin (Aspirin Enteric Coated 81 Mg Tablet.Dr) 81 mg PO DAILY [facility] Last Admin: 08/11/25 09:05 Dose: 81 mg Atorvastatin Calcium (Atorvastatin Calcium 20 Mg Tablet) 20 mg PO DAILY [facility] Last Admin: 08/11/25 09:04 Dose: 20 mg Bupropion HCl (Bupropion Hcl Xl 150 Mg Tab.Er.24h) 150 mg PO DAILY [facility] Last Admin: 08/11/25 09:05 Dose: 150 mg Clonazepam (Clonazepam 0.5 Mg Tablet) 0.5 mg PO TID PRN PRN Reason: moderate anxiety Last Admin: 08/11/25 09:07 Dose: 0.5 mg Furosemide (Furosemide 20 Mg Tablet) 20 mg PO DAILY [facility]; Protocol Last Admin: 08/11/25 09:04 Dose: 20 mg Gabapentin (Gabapentin 300 Mg Capsule) 300 mg PO BID [facility] Last Admin: 08/11/25 09:04 Dose: 300 mg Hydroxyzine HCl (Hydroxyzine Hcl 25 Mg Tablet) 25 mg PO Q6H PRN PRN Reason: mild anxiety Last Admin: 08/05/25 21:40 Dose: 25 mg Lisinopril (Lisinopril 5 Mg Tablet) 5 mg PO DAILY [facility]; Protocol Last Admin: 08/11/25 09:04 Dose: 5 mg Loperamide HCl (Loperamide Hcl 2 Mg Capsule) 2 mg PO Q6H PRN PRN Reason: loose stool Last Admin: 08/06/25 10:27 Dose: 2 mg Magnesium Hydroxide (Milk Of Magnesia 30 Ml Oral.Susp) 30 ml PO DAILY PRN PRN Reason: Constipation Mirtazapine (Mirtazapine 7.5 Mg Tablet) 7.5 mg PO BEDTIME PRN PRN Reason: Sleep Nicotine (Nicotine 21 Mg Patch.Td24) 21 mg TRANSDERMA DAILY PRN PRN Reason: smoking cessation Nicotine Polacrilex (Nicotine Polacrilex 2 Mg Gum) 4 mg BUCCAL Q2H PRN PRN Reason: Nicotine Cravings Olanzapine (Olanzapine 2.5 Mg Tablet) 2.5 mg PO TID PRN PRN Reason: agitation Oxycodone HCl (Oxycodone Hcl Immed Release 5 Mg Tablet) 5 mg PO Q12H PRN PRN Reason: severe pain Last Admin: 08/10/25 21:56 Dose: 5 mg Paroxetine HCl (Paroxetine Hcl 30 Mg Tablet) 30 mg PO DAILY [facility] Last Admin: 08/11/25 09:04 Dose: 30 mg Trazodone HCl (Trazodone Hcl 50 Mg Tablet) 50 mg PO BEDTIME MRX1 PRN PRN Reason: Insomnia Warfarin Sodium (Warfarin Sodium 5 Mg Tablet) 5 mg PO DAILY@1800 [facility] Last Admin: 08/10/25 17:30 Dose: 5 mg Allergies Allergies Allergy/AdvReac Type Severity Reaction Status Date / Time No Known Allergies Allergy Verified 08/02/25 17:01 Assessment & Plan Assessment & Plan (1) MDD (major depressive disorder), recurrent severe, without psychosis: Status: Acute Code(s): F33.2 - Major depressive disorder, recurrent severe without psychotic features (2) HTN (hypertension): Status: Acute Code(s): I10 - Essential (primary) hypertension (3) Cocaine use disorder: Status: Acute Code(s): F14.10 - Cocaine abuse, uncomplicated Plan HPI: Patient is a 59-year-old female with history of anxiety, MDD, heart valve replacement on Coumadin, HTN, HLD, CKD, CVA(?), chronic back pain prescribed oxycodone, who presented to the ED following suicidal gesture in the face of ongoing depression. On 08/02 Patient reported being depressed since her mother 4 months ago, saying she just sleeps all the time. She said that she cut herself, indicating her arm (which has only superficial scratches) saying that she wanted to hurt herself but did not want to . Patient acknowledged that she took more medication than usual but denies that this was in any way a suicide attempt, saying she just wanted to sleep. She denies AVH; denies substance abuse; she is prescribed oxycodone however U tox was also positive for cocaine. General Production Laborer attempted to meet with patient again on 08/03 to further clarify at assess however patient having ongoing diarrhea which kept interrupting ability to have a formal conversation. Patient reports that she has a guardian, her daughter Shani Formulation/clinical reasoning: Reports worsening depression in the face of losing her mother. She is on Paxil 30 mg. Her full history is unclear as patient was not able to participate further due to diarrheal illness. Will continue home medication regimen for now. Collecting stool samples to rule out C diff. on the unit, patient had some behaviors that were hard to understand such as holding her feces in her hand and offering it to 1 of the counselors; being cleaned up in the bathroom with nurse to returned finding feces smeared all over her clothing; not sure if patient was trying to clean herself and was unable to (she uses a walker; possible history of CVA) or if this represents disorganization. Hospital course: 08/04 Patient said she is feeling better. Described episode leading up to admission where she was feeling distraught and cut her arm, showing script writer of superficial scratches on her right forearm. She denies any SI at all. She at 1st denied but then acknowledged that she sometimes uses crack; says that numerous people in the building sell it. Patient does not know her medications. She accepted that she is on an antidepressant. She says that she was very sad when her mother but that she is starting to feel like she is getting better. Patient gave permission to speak with her daughter who is also her guardian -Patient's guardian and daughter said that patient has been getting increasingly more depressed since this summer, not attending to ADLs and has seemed more confused and forgetful. -patient amenable to increasing or adding antidepressant medication -Diarrhea has fully resolved. C diff/GI panel negative. General Production Laborer wonders if patient was taking increase dose of her home oxycodone prescription and on the unit, only being given 1 mg b.i.d., had some opiate withdrawal, triggering loose stool. Patient denies taking anymore than 1 mg b.i.d. 08/05 Patient reports that she is feeling better but agrees with the daughter that she has been very depressed over the past months and agrees to starting Wellbutrin. General Production Laborer discussed reasoning for starting this med with which she agreed. OT did [place] and patient scored 10/11. -starting Wellbutrin XR 150mg to address worsening depression and to help with executive functioning 08/08 patient's mood is significantly improved and she reports depression gone. Patient's brother present who agrees that she is back to her regular self Patient seems to have some underlying cognitive dysfunction and team is discussing with her daughter appropriate aftercare as it is not clear that patient is able to care for herself on her own 08/09 pt reports she's doing good and denies depression. Says feeling like regular self and would like to go home. She agrees to remain for family meeting tomorrow with her daughter/guardian -will leave med regimen as is for now and see daughters perspective; need to set up aftercare 08/10 patient remains doing better, improved mood; daughter agrees patient is back to regular self; setting up aftercare and feeling note guardian paperwork General Production Laborer agrees that given patient's presentation and history, she requires guardianship level care to help her make medical decisions and other decisions regarding her safety and well-being Plan: CV Q 15 minute checks Continue Wellbutrin XR 150mg Continue home medication regimen Patient on Coumadin and INRs being checked daily C diff/GI panel negative Will get collateral Patient educated on diagnosis and medical condition Anxiety/MDD/Psychosis Treatment per psychiatric team History of mitral valve replacement on Coumadin/hypertension/hyperlipidemia/fluid overload related to rheumatic heart disease Continue Coumadin dosing per pharmacy recommendation Continue atorvastatin, Lasix, lisinopril daily Appears euvolemic on exam Vitals and labs were stable Chronic kidney disease Baseline 1.2 Avoid nephrotoxins Chronic arthralgias Takes oxycodone chronically Patient educated on: diagnosis and medication risk/benefits Informed Consent: understands and further education needed Reason for continued inpatient stay Substantial Risk for: med/psych decompensation Time Spent With Patient Time: Total time managing care of this patient today ____ minutes.
[2025-08-11 20:00] VITALS: BP 130/65; PULSE 70; RESP 16; TEMP 36.4; O2SAT 97
[2025-08-11] MEDS: oxyCODONE HCl Immed Release 5 MG TABLET PO (20:02)
[2025-08-12 08:00] VITALS: BP 119/78; PULSE 79; RESP 16; TEMP 36.5; O2SAT 97
[2025-08-12 08:03] LABS: INTERNATIONAL NORM RATIO 2.0 (0.9-1.1); Prothrombin Time 23.5 SEC (10.9-12.4)
[2025-08-12] MEDS: Aspirin Enteric Coated 81 MG TABLET.DR PO (08:46)
[2025-08-12] MEDS: buPROPion HCl XL 150 MG TAB.ER.24H PO (08:46)
[2025-08-12] MEDS: oxyCODONE HCl Immed Release 5 MG TABLET PO ×2 (08:49→20:10)
--- NOTE | 2025-08-12 17:10 | HO.PSYCHPN ---
Subjective Subjective Date of Service: 08/12/25 Reason For Visit: Major Depression severe recurrent with psychosis Interim History: Met with patient; discussed with team Patient remains stable, no complaints, no requests, looking forward to discharging Friday. Of note patient remains more sociable and in the milieu sitting with peers Mental Status Exam Mental Status Exam Patient Appearance: Appropriate and Unkempt Patient Orientation: Person, Place and Time Level of Consciousness: Awake and Appropriate Patient Behavior: Appropriate and Good Eye Contact Mood Description: Calm Affect Description: Calm Patient Cognition Impaired: Yes Ability to Follow Directions: Fair Speech Pattern: Clear and Spontaneous Speech Memory Description: Normal for Patient (Impaired at baseline) Hallucinations: None Delusions: Not Present Thought Content: positive for Intact (No SI/HI) Judgement: Poor (Impaired at baseline but adequate) Diagnostics Vital Signs (24Hr): Vital Signs - 24 hr 08/11/25 20:00 08/12/25 08:00 Temperature 97.6 F 97.7 F Pulse Rate 70 79 Respiratory Rate 16 16 Blood Pressure 130/65 119/78 Pulse Oximetry 97 97 Oxygen Delivery Method Room Air BMI result Body Mass Index 28.2 Labs 08/04/25 12:48 08/04/25 12:48 Labs: Laboratory Results - last 48 hr 08/11/25 08/12/25 07:48 07:34 PT 28.5 H 23.5 H INR 2.5 H 2.0 H Medications Medications Current Medications Acetaminophen (Acetaminophen 325 Mg Tablet) 650 mg PO Q6H PRN PRN Reason: Headache/Pain, Scale 1-10 Last Admin: 08/03/25 06:11 Dose: 650 mg Al Hydroxide/Mg Hydroxide (Magnesium Hydrox/Alum Hydrox 30 Ml Oral.Susp) 30 ml PO Q6H PRN PRN Reason: Heartburn/Nausea Aspirin (Aspirin Enteric Coated 81 Mg Tablet.) 81 mg PO DAILY [facility] Last Admin: 08/12/25 08:46 Dose: 81 mg Atorvastatin Calcium (Atorvastatin Calcium 20 Mg Tablet) 20 mg PO DAILY [facility] Last Admin: 08/12/25 08:46 Dose: 20 mg Bupropion HCl (Bupropion Hcl Xl 150 Mg Tab.Er.24h) 150 mg PO DAILY [facility] Last Admin: 08/12/25 08:46 Dose: 150 mg Clonazepam (Clonazepam 0.5 Mg Tablet) 0.5 mg PO TID PRN PRN Reason: moderate anxiety Last Admin: 08/11/25 20:02 Dose: 0.5 mg Furosemide (Furosemide 20 Mg Tablet) 20 mg PO DAILY [facility]; Protocol Last Admin: 08/12/25 08:46 Dose: 20 mg Gabapentin (Gabapentin 300 Mg Capsule) 300 mg PO BID [facility] Last Admin: 08/12/25 08:46 Dose: 300 mg Hydroxyzine HCl (Hydroxyzine Hcl 25 Mg Tablet) 25 mg PO Q6H PRN PRN Reason: mild anxiety Last Admin: 08/05/25 21:40 Dose: 25 mg Lisinopril (Lisinopril 5 Mg Tablet) 5 mg PO DAILY [facility]; Protocol Last Admin: 08/12/25 08:46 Dose: 5 mg Loperamide HCl (Loperamide Hcl 2 Mg Capsule) 2 mg PO Q6H PRN PRN Reason: loose stool Last Admin: 08/06/25 10:27 Dose: 2 mg Magnesium Hydroxide (Milk Of Magnesia 30 Ml Oral.Susp) 30 ml PO DAILY PRN PRN Reason: Constipation Mirtazapine (Mirtazapine 7.5 Mg Tablet) 7.5 mg PO BEDTIME PRN PRN Reason: Sleep Nicotine (Nicotine 21 Mg Patch.Td24) 21 mg TRANSDERMA DAILY PRN PRN Reason: smoking cessation Nicotine Polacrilex (Nicotine Polacrilex 2 Mg Gum) 4 mg BUCCAL Q2H PRN PRN Reason: Nicotine Cravings Olanzapine (Olanzapine 2.5 Mg Tablet) 2.5 mg PO TID PRN PRN Reason: agitation Oxycodone HCl (Oxycodone Hcl Immed Release 5 Mg Tablet) 5 mg PO Q12H PRN PRN Reason: severe pain Last Admin: 08/12/25 08:49 Dose: 5 mg Paroxetine HCl (Paroxetine Hcl 30 Mg Tablet) 30 mg PO DAILY [facility] Last Admin: 08/12/25 08:46 Dose: 30 mg Trazodone HCl (Trazodone Hcl 50 Mg Tablet) 50 mg PO BEDTIME MRX1 PRN PRN Reason: Insomnia Warfarin Sodium (Warfarin Sodium 5 Mg Tablet) 5 mg PO DAILY@1800 [facility] Last Admin: 08/11/25 17:55 Dose: 5 mg Allergies Allergies Allergy/AdvReac Type Severity Reaction Status Date / Time No Known Allergies Allergy Verified 08/02/25 17:01 Assessment & Plan Assessment & Plan (1) MDD (major depressive disorder), recurrent severe, without psychosis: Status: Acute Code(s): F33.2 - Major depressive disorder, recurrent severe without psychotic features (2) HTN (hypertension): Status: Acute Code(s): I10 - Essential (primary) hypertension (3) Cocaine use disorder: Status: Acute Code(s): F14.10 - Cocaine abuse, uncomplicated Plan HPI: Patient is a 59-year-old female with history of anxiety, MDD, heart valve replacement on Coumadin, HTN, HLD, CKD, CVA(?), chronic back pain prescribed oxycodone, who presented to the ED following suicidal gesture in the face of ongoing depression. On 08/02 Patient reported being depressed since her mother 4 months ago, saying she just sleeps all the time. She said that she cut herself, indicating her arm (which has only superficial scratches) saying that she wanted to hurt herself but did not want to . Patient acknowledged that she took more medication than usual but denies that this was in any way a suicide attempt, saying she just wanted to sleep. She denies AVH; denies substance abuse; she is prescribed oxycodone however U tox was also positive for cocaine. Public Relations Player attempted to meet with patient again on 08/03 to further clarify at assess however patient having ongoing diarrhea which kept interrupting ability to have a formal conversation. Patient reports that she has a guardian, her daughter Shani Formulation/clinical reasoning: Reports worsening depression in the face of losing her mother. She is on Paxil 30 mg. Her full history is unclear as patient was not able to participate further due to diarrheal illness. Will continue home medication regimen for now. Collecting stool samples to rule out C diff. on the unit, patient had some behaviors that were hard to understand such as holding her feces in her hand and offering it to 1 of the counselors; being cleaned up in the bathroom with nurse to returned finding feces smeared all over her clothing; not sure if patient was trying to clean herself and was unable to (she uses a walker; possible history of CVA) or if this represents disorganization. Hospital course: 08/04 Patient said she is feeling better. Described episode leading up to admission where she was feeling distraught and cut her arm, showing law writer of superficial scratches on her right forearm. She denies any SI at all. She at 1st denied but then acknowledged that she sometimes uses crack; says that numerous people in the building sell it. Patient does not know her medications. She accepted that she is on an antidepressant. She says that she was very sad when her mother but that she is starting to feel like she is getting better. Patient gave permission to speak with her daughter who is also her guardian -Patient's guardian and daughter said that patient has been getting increasingly more depressed since this summer, not attending to ADLs and has seemed more confused and forgetful. -patient amenable to increasing or adding antidepressant medication -Diarrhea has fully resolved. C diff/GI panel negative. Public Relations Player wonders if patient was taking increase dose of her home oxycodone prescription and on the unit, only being given 1 mg b.i.d., had some opiate withdrawal, triggering loose stool. Patient denies taking anymore than 1 mg b.i.d. 08/05 Patient reports that she is feeling better but agrees with the daughter that she has been very depressed over the past months and agrees to starting Wellbutrin. Public Relations Player discussed reasoning for starting this med with which she agreed. OT did [place] and patient scored 10/11. -starting Wellbutrin XR 150mg to address worsening depression and to help with executive functioning 08/08 patient's mood is significantly improved and she reports depression gone. Patient's brother present who agrees that she is back to her regular self Patient seems to have some underlying cognitive dysfunction and team is discussing with her daughter appropriate aftercare as it is not clear that patient is able to care for herself on her own 08/09 pt reports she's doing good and denies depression. Says feeling like regular self and would like to go home. She agrees to remain for family meeting tomorrow with her daughter/guardian -will leave med regimen as is for now and see daughters perspective; need to set up aftercare 08/10 patient remains doing better, improved mood; daughter agrees patient is back to regular self; setting up aftercare and feeling note guardian paperwork Public Relations Player agrees that given patient's presentation and history, she requires guardianship level care to help her make medical decisions and other decisions regarding her safety and well-being 08/12 remains stable; continued dispo planning Plan: CV Q 15 minute checks Continue Wellbutrin XR 150mg Continue home medication regimen Patient on Coumadin and INRs being checked daily C diff/GI panel negative Will get collateral Patient educated on diagnosis and medical condition Anxiety/MDD/Psychosis Treatment per psychiatric team History of mitral valve replacement on Coumadin/hypertension/hyperlipidemia/fluid overload related to rheumatic heart disease Continue Coumadin dosing per pharmacy recommendation Continue atorvastatin, Lasix, lisinopril daily Appears euvolemic on exam Vitals and labs were stable Chronic kidney disease Baseline 1.2 Avoid nephrotoxins Chronic arthralgias Takes oxycodone chronically Patient educated on: diagnosis Informed Consent: understands and further education needed Reason for continued inpatient stay Substantial Risk for: med/psych decompensation Time Spent With Patient Time: Total time managing care of this patient today ____ minutes.
[2025-08-12 20:00] VITALS: BP 144/68; PULSE 88; TEMP 36.9; O2SAT 98
[2025-08-13 08:28] VITALS: BP 124/72; PULSE 66; RESP 16; TEMP 36.7; O2SAT 97
[2025-08-13] MEDS: buPROPion HCl XL 150 MG TAB.ER.24H PO (08:37)
[2025-08-13] MEDS: Aspirin Enteric Coated 81 MG TABLET.DR PO (08:37)
[2025-08-13] MEDS: oxyCODONE HCl Immed Release 5 MG TABLET PO ×2 (08:40→21:35)
--- NOTE | 2025-08-13 09:31 | P.PNPSI_ITS ---
Subjective Subjective Date of Service: 08/13/25 Reason For Visit: Major Depression severe recurrent with psychosis Interim History: Met with patient; discussed with team Patient reports that her mood is good she is doing well. Denies any psychiatric symptoms. She complains of dysuria, a burning sensation when she urinates; subsequent UA corroborates and patient agrees to start on antibiotic. Today patient is INR subtherapeutic at 1.4 (INR has been trending down); discussed with pharmacist and will give 1 time dose of 7.5 mg and then resume standing 5 mg dose tomorrow; will continue to monitor. Mental Status Exam Patient Appearance: Appropriate and Unkempt but with adequate hygiene Patient Orientation: Person, Place and Time Level of Consciousness: Awake and Appropriate Patient Behavior: Appropriate and Good Eye Contact; calm, cooperative and friendly; good behavioral control Mood Description: Good Affect Description: Congruent; bright and friendly Patient Cognition Impaired: Yes at baseline Ability to Follow Directions: Fair Speech Pattern: Clear and Spontaneous Speech Memory Description: Normal for Patient (Impaired at baseline) Hallucinations: None Delusions: Not Present Thought Content: Intact and no SI/HI Judgment: Impaired at baseline but adequate Diagnostics Vital Signs (24Hr): Vital Signs - 24 hr 08/12/25 20:00 08/13/25 08:28 Temperature 98.5 F 98.1 F Pulse Rate 88 66 Respiratory Rate 16 Blood Pressure 144/68 H 124/72 Pulse Oximetry 98 97 Oxygen Delivery Method Room Air Room Air BMI result Body Mass Index 28.2 Labs 08/04/25 12:48 08/04/25 12:48 Labs: Laboratory Results - last 48 hr 08/12/25 07:34 PT 23.5 H INR 2.0 H Medications Medications Current Medications Acetaminophen (Acetaminophen 325 Mg Tablet) 650 mg PO Q6H PRN PRN Reason: Headache/Pain, Scale 1-10 Last Admin: 08/03/25 06:11 Dose: 650 mg Al Hydroxide/Mg Hydroxide (Magnesium Hydrox/Alum Hydrox 30 Ml Oral.Susp) 30 ml PO Q6H PRN PRN Reason: Heartburn/Nausea Aspirin (Aspirin Enteric Coated 81 Mg Tablet.) 81 mg PO DAILY [facility] Last Admin: 08/13/25 08:37 Dose: 81 mg Atorvastatin Calcium (Atorvastatin Calcium 20 Mg Tablet) 20 mg PO DAILY [facility] Last Admin: 08/13/25 08:36 Dose: 20 mg Bupropion HCl (Bupropion Hcl Xl 150 Mg Tab.Er.24h) 150 mg PO DAILY [facility] Last Admin: 08/13/25 08:37 Dose: 150 mg Clonazepam (Clonazepam 0.5 Mg Tablet) 0.5 mg PO TID PRN PRN Reason: moderate anxiety Last Admin: 08/11/25 20:02 Dose: 0.5 mg Furosemide (Furosemide 20 Mg Tablet) 20 mg PO DAILY [facility]; Protocol Last Admin: 08/13/25 08:37 Dose: 20 mg Gabapentin (Gabapentin 300 Mg Capsule) 300 mg PO BID [facility] Last Admin: 08/13/25 08:37 Dose: 300 mg Hydroxyzine HCl (Hydroxyzine Hcl 25 Mg Tablet) 25 mg PO Q6H PRN PRN Reason: mild anxiety Last Admin: 08/05/25 21:40 Dose: 25 mg Lisinopril (Lisinopril 5 Mg Tablet) 5 mg PO DAILY [facility]; Protocol Last Admin: 08/13/25 08:37 Dose: 5 mg Loperamide HCl (Loperamide Hcl 2 Mg Capsule) 2 mg PO Q6H PRN PRN Reason: loose stool Last Admin: 08/06/25 10:27 Dose: 2 mg Magnesium Hydroxide (Milk Of Magnesia 30 Ml Oral.Susp) 30 ml PO DAILY PRN PRN Reason: Constipation Mirtazapine (Mirtazapine 7.5 Mg Tablet) 7.5 mg PO BEDTIME PRN PRN Reason: Sleep Nicotine (Nicotine 21 Mg Patch.Td24) 21 mg TRANSDERMA DAILY PRN PRN Reason: smoking cessation Nicotine Polacrilex (Nicotine Polacrilex 2 Mg Gum) 4 mg BUCCAL Q2H PRN PRN Reason: Nicotine Cravings Olanzapine (Olanzapine 2.5 Mg Tablet) 2.5 mg PO TID PRN PRN Reason: agitation Oxycodone HCl (Oxycodone Hcl Immed Release 5 Mg Tablet) 5 mg PO Q12H PRN PRN Reason: severe pain Last Admin: 08/13/25 08:40 Dose: 5 mg Paroxetine HCl (Paroxetine Hcl 30 Mg Tablet) 30 mg PO DAILY [facility] Last Admin: 08/13/25 08:38 Dose: 30 mg Trazodone HCl (Trazodone Hcl 50 Mg Tablet) 50 mg PO BEDTIME MRX1 PRN PRN Reason: Insomnia Warfarin Sodium (Warfarin Sodium 5 Mg Tablet) 5 mg PO DAILY@1800 [facility] Last Admin: 08/12/25 17:57 Dose: 5 mg Allergies Allergies Allergy/AdvReac Type Severity Reaction Status Date / Time No Known Allergies Allergy Verified 08/02/25 17:01 Assessment & Plan Assessment & Plan (1) MDD (major depressive disorder), recurrent severe, without psychosis: Status: Acute Code(s): F33.2 - Major depressive disorder, recurrent severe without psychotic features (2) HTN (hypertension): Status: Acute Code(s): I10 - Essential (primary) hypertension (3) Cocaine use disorder: Status: Acute Code(s): F14.10 - Cocaine abuse, uncomplicated Plan HPI: Patient is a 59-year-old female with history of anxiety, MDD, heart valve replacement on Coumadin, HTN, HLD, CKD, CVA(?), chronic back pain prescribed oxycodone, who presented to the ED following suicidal gesture in the face of ongoing depression. On 08/02 Patient reported being depressed since her mother 4 months ago, saying she just sleeps all the time. She said that she cut herself, indicating her arm (which has only superficial scratches) saying that she wanted to hurt herself but did not want to . Patient acknowledged that she took more medication than usual but denies that this was in any way a suicide attempt, saying she just wanted to sleep. She denies AVH; denies substance abuse; she is prescribed oxycodone however U tox was also positive for cocaine. Rug Inspector Helper attempted to meet with patient again on 08/03 to further clarify at assess however patient having ongoing diarrhea which kept interrupting ability to have a formal conversation. Patient reports that she has a guardian, her daughter Shani Formulation/clinical reasoning: Reports worsening depression in the face of losing her mother. She is on Paxil 30 mg. Her full history is unclear as patient was not able to participate further due to diarrheal illness. Will continue home medication regimen for now. Collecting stool samples to rule out C diff. on the unit, patient had some behaviors that were hard to understand such as holding her feces in her hand and offering it to 1 of the counselors; being cleaned up in the bathroom with nurse to returned finding feces smeared all over her clothing; not sure if patient was trying to clean herself and was unable to (she uses a walker; possible history of CVA) or if this represents disorganization. Hospital course: 08/04 Patient said she is feeling better. Described episode leading up to admission where she was feeling distraught and cut her arm, showing health underwriter of superficial scratches on her right forearm. She denies any SI at all. She at denied but then acknowledged that she sometimes uses crack; says that numerous people in the building sell it. Patient does not know her medications. She accepted that she is on an antidepressant. She says that she was very sad when her mother but that she is starting to feel like she is getting better. Patient gave permission to speak with her daughter who is also her guardian -Patient's guardian and daughter said that patient has been getting increasingly more depressed since this summer, not attending to ADLs and has seemed more confused and forgetful. -patient amenable to increasing or adding antidepressant medication -Diarrhea has fully resolved. C diff/GI panel negative. Rug Inspector Helper wonders if patient was taking increase dose of her home oxycodone prescription and on the unit, only being given 1 mg b.i.d., had some opiate withdrawal, triggering loose stool. Patient denies taking anymore than 1 mg b.i.d. 08/05 Patient reports that she is feeling better but agrees with the daughter that she has been very depressed over the past months and agrees to starting Wellbutrin. Rug Inspector Helper discussed reasoning for starting this med with which she agreed. OT did [place] and patient scored 10/11. -starting Wellbutrin XR 150mg to address worsening depression and to help with executive functioning 08/08 patient's mood is significantly improved and she reports depression gone. Patient's brother present who agrees that she is back to her regular self Patient seems to have some underlying cognitive dysfunction and team is discussing with her daughter appropriate aftercare as it is not clear that patient is able to care for herself on her own 08/09 pt reports she's doing good and denies depression. Says feeling like regular self and would like to go home. She agrees to remain for family meeting tomorrow with her daughter/guardian -will leave med regimen as is for now and see daughters perspective; need to set up aftercare 08/10 patient remains doing better, improved mood; daughter agrees patient is back to regular self; setting up aftercare and feeling note guardian paperwork Rug Inspector Helper agrees that given patient's presentation and history, she requires guardianship level care to help her make medical decisions and other decisions regarding her safety and well-being 08/12 remains stable; continued dispo planning 08/13 Patient reports that her mood is good she is doing well. Denies any psychiatric symptoms. She complains of dysuria, a burning sensation when she urinates; subsequent UA corroborates and patient agrees to start on antibiotic. Today patient is INR subtherapeutic at 1.4 (INR has been trending down); discussed with pharmacist and will give 1 time dose of 7.5 mg and then resume standing 5 mg dose tomorrow; will continue to monitor. Plan: CV Q 15 minute checks -Warfarin 1 time dose of 7.5 mg and then resume standing 5 mg dose tomorrow (for subtherapeutic INR) -start on nitrofurantoin 100 mg b.i.d. for 5 days for UTI Continue Wellbutrin XR 150mg Continue home medication regimen Patient on Coumadin and INRs being checked daily C diff/GI panel negative Will get collateral Patient educated on diagnosis and medical condition Anxiety/MDD/Psychosis Treatment per psychiatric team History of mitral valve replacement on Coumadin/hypertension/hyperlipidemia/fluid overload related to rheumatic heart disease Continue Coumadin dosing per pharmacy recommendation Continue atorvastatin, Lasix, lisinopril daily Appears euvolemic on exam Vitals and labs were stable Chronic kidney disease Baseline 1.2 Avoid nephrotoxins Chronic arthralgias Takes oxycodone chronically Patient educated on: diagnosis, medication risk/benefits and medical condition Informed Consent: understands, does not understand and further education needed Reason for continued inpatient stay Substantial Risk for: stable for discharge Time Spent With Patient Time: Total time managing care of this patient today ____ minutes.
[2025-08-13 10:53] LABS: INTERNATIONAL NORM RATIO 1.4 (0.9-1.1); Prothrombin Time 16.2 SEC (10.9-12.4)
[2025-08-13 13:25] LABS: Appearance Urine Cloudy; Glucose Urine UA Negative (Negative); PH 6.0 (5.0-9.0); Specific Gravity - Urine 1.015 (1.005-1.025); UMIC TRIGGER UACC YES
[2025-08-13 13:35] LABS: UACC Culture Trigger YES
[2025-08-13 14:29] LABS: Bacterial Vaginosis PCR NEGATIVE (Negative); Candida Group PCR NOT DETECTED (Not Detect); Candida glab krusei PCR NOT DETECTED (Not Detect); Trichomonas vaginalis PCR NOT DETECTED (Not Detect)
[2025-08-13 20:00] VITALS: BP 143/68; PULSE 66; RESP 16; TEMP 36.7; O2SAT 97
--- NOTE | 2025-08-13 22:33 | PC.NURSE ---
Patient c/o bladder pain radiating into her back. In addition to the prn Acetaminophen and Oxycodone, patient now has an order for Pyridium. The aerial photograph interpreter was on the unit and assisted with explaining the Pyridium may cause her urine to look red or orange.
[2025-08-14 08:00] VITALS: BP 130/56; PULSE 62; RESP 16; TEMP 36.6; O2SAT 98
[2025-08-14 08:36] LABS: INTERNATIONAL NORM RATIO 1.4 (0.9-1.1); Prothrombin Time 15.6 SEC (10.9-12.4)
[2025-08-14 08:40] VITALS: BP 130/56
[2025-08-14] MEDS: Aspirin Enteric Coated 81 MG TABLET.DR PO (08:40)
[2025-08-14] MEDS: buPROPion HCl XL 150 MG TAB.ER.24H PO (08:41)
[2025-08-14] MEDS: oxyCODONE HCl Immed Release 5 MG TABLET PO ×2 (08:54→20:11)
[2025-08-14 19:48] VITALS: BP 139/64; PULSE 72; RESP 18; TEMP 36.6; O2SAT 99
--- NOTE | 2025-08-14 21:44 | HO.PSYCHPN ---
Subjective Subjective Date of Service: 08/14/25 Reason For Visit: Major Depression severe recurrent with psychosis Interim History: Met with patient; discussed with team Patient reports that she has good; denies any psychiatric symptoms and looking forward to going home tomorrow Mental Status Exam Patient Appearance: Appropriate and Unkempt but with adequate hygiene Patient Orientation: Person, Place and Time Level of Consciousness: Awake and Appropriate Patient Behavior: Appropriate and Good Eye Contact; calm, cooperative and friendly; good behavioral control Mood Description: Good Affect Description: Congruent; bright and friendly Patient Cognition Impaired: Yes at baseline Ability to Follow Directions: Fair Speech Pattern: Clear and Spontaneous Speech Memory Description: Normal for Patient (Impaired at baseline) Hallucinations: None Delusions: Not Present Thought Content: Intact and no SI/HI Judgment: Impaired at baseline but adequate Diagnostics Vital Signs (24Hr): Vital Signs - 24 hr 08/14/25 08:00 08/14/25 08:40 08/14/25 19:48 Temperature 97.8 F 97.9 F Pulse Rate 62 72 Respiratory Rate 16 18 Blood Pressure 130/56 L 130/56 L 139/64 Pulse Oximetry 98 99 Oxygen Delivery Method Room Air Room Air BMI result Body Mass Index 28.2 Labs 08/04/25 12:48 08/04/25 12:48 Labs: Laboratory Results - last 48 hr 08/13/25 08/13/25 08/14/25 09:58 13:12 08:05 PT 16.2 H D 15.6 H INR 1.4 H 1.4 H Urine Color Yellow Urine Appearance Cloudy Urine pH 6.0 Ur Specific [place] 1.015 Urine Protein Negative Urine Glucose (UA) Negative Urine Ketones Negative Urine Blood Small (1+) H Urine Nitrite Negative Ur Leukocyte Esterase Moderate (2+) H Urine RBC 6-10 H Urine WBC >50 H Ur Squamous Epith Cells 6-10 Urine Bacteria 3+ Hyaline Casts 3-5 T. vaginalis (PCR) NOT DETECTED Bact vaginosis (PCR) NEGATIVE C. krusei/glabrata (PCR) NOT DETECTED Ivon group (PCR) NOT DETECTED Medications Medications Current Medications Acetaminophen (Acetaminophen 325 Mg Tablet) 650 mg PO Q6H PRN PRN Reason: Headache/Pain, Scale 1-10 Last Admin: 08/13/25 18:49 Dose: 650 mg Al Hydroxide/Mg Hydroxide (Magnesium Hydrox/Alum Hydrox 30 Ml Oral.Susp) 30 ml PO Q6H PRN PRN Reason: Heartburn/Nausea Aspirin (Aspirin Enteric Coated 81 Mg Tablet.Dr) 81 mg PO DAILY [facility] Last Admin: 08/14/25 08:40 Dose: 81 mg Atorvastatin Calcium (Atorvastatin Calcium 20 Mg Tablet) 20 mg PO DAILY [facility] Last Admin: 08/14/25 08:40 Dose: 20 mg Bupropion HCl (Bupropion Hcl Xl 150 Mg Tab.Er.24h) 150 mg PO DAILY [facility] Last Admin: 08/14/25 08:41 Dose: 150 mg Clonazepam (Clonazepam 0.5 Mg Tablet) 0.5 mg PO TID PRN PRN Reason: moderate anxiety Last Admin: 08/11/25 20:02 Dose: 0.5 mg Furosemide (Furosemide 20 Mg Tablet) 20 mg PO DAILY [facility]; Protocol Last Admin: 08/14/25 08:41 Dose: 20 mg Gabapentin (Gabapentin 300 Mg Capsule) 300 mg PO BID [facility] Last Admin: 08/14/25 20:10 Dose: 300 mg Hydroxyzine HCl (Hydroxyzine Hcl 25 Mg Tablet) 25 mg PO Q6H PRN PRN Reason: mild anxiety Last Admin: 08/05/25 21:40 Dose: 25 mg Lisinopril (Lisinopril 5 Mg Tablet) 5 mg PO DAILY [facility]; Protocol Last Admin: 08/14/25 08:40 Dose: 5 mg Loperamide HCl (Loperamide Hcl 2 Mg Capsule) 2 mg PO Q6H PRN PRN Reason: loose stool Last Admin: 08/06/25 10:27 Dose: 2 mg Magnesium Hydroxide (Milk Of Magnesia 30 Ml Oral.Susp) 30 ml PO DAILY PRN PRN Reason: Constipation Mirtazapine (Mirtazapine 7.5 Mg Tablet) 7.5 mg PO BEDTIME PRN PRN Reason: Sleep Nicotine (Nicotine 21 Mg Patch.Td24) 21 mg TRANSDERMA DAILY PRN PRN Reason: smoking cessation Nicotine Polacrilex (Nicotine Polacrilex 2 Mg Gum) 4 mg BUCCAL Q2H PRN PRN Reason: Nicotine Cravings Nitrofurantoin Macrocrystals (Nitrofurantoin Macrocrystal 50 Mg Capsule) 100 mg PO BID [facility] Stop: 08/17/25 21:01 Last Admin: 08/14/25 20:12 Dose: 100 mg Olanzapine (Olanzapine 2.5 Mg Tablet) 2.5 mg PO TID PRN PRN Reason: agitation Oxycodone HCl (Oxycodone Hcl Immed Release 5 Mg Tablet) 5 mg PO Q12H PRN PRN Reason: severe pain Last Admin: 08/14/25 20:11 Dose: 5 mg Paroxetine HCl (Paroxetine Hcl 30 Mg Tablet) 30 mg PO DAILY [facility] Last Admin: 08/14/25 08:40 Dose: 30 mg Phenazopyridine HCl (Phenazopyridine Hcl 200 Mg Tablet) 200 mg PO TID PRN PRN Reason: bladder pain/dysuria Stop: 08/15/25 20:35 Last Admin: 08/14/25 20:11 Dose: 200 mg Trazodone HCl (Trazodone Hcl 50 Mg Tablet) 50 mg PO BEDTIME MRX1 PRN PRN Reason: Insomnia Warfarin Sodium (Warfarin Sodium 5 Mg Tablet) 5 mg PO DAILY@1800 [facility] Allergies Allergies Allergy/AdvReac Type Severity Reaction Status Date / Time No Known Allergies Allergy Verified 08/02/25 17:01 Assessment & Plan Assessment & Plan (1) MDD (major depressive disorder), recurrent severe, without psychosis: Status: Acute Code(s): F33.2 - Major depressive disorder, recurrent severe without psychotic features (2) HTN (hypertension): Status: Acute Code(s): I10 - Essential (primary) hypertension (3) Cocaine use disorder: Status: Acute Code(s): F14.10 - Cocaine abuse, uncomplicated Plan HPI: Patient is a 59-year-old female with history of anxiety, MDD, heart valve replacement on Coumadin, HTN, HLD, CKD, CVA(?), chronic back pain prescribed oxycodone, who presented to the ED following suicidal gesture in the face of ongoing depression. On 08/02 Patient reported being depressed since her mother 4 months ago, saying she just sleeps all the time. She said that she cut herself, indicating her arm (which has only superficial scratches) saying that she wanted to hurt herself but did not want to . Patient acknowledged that she took more medication than usual but denies that this was in any way a suicide attempt, saying she just wanted to sleep. She denies AVH; denies substance abuse; she is prescribed oxycodone however U tox was also positive for cocaine. Hospice Care Transitions Coordinator attempted to meet with patient again on 08/03 to further clarify at assess however patient having ongoing diarrhea which kept interrupting ability to have a formal conversation. Patient reports that she has a guardian, her daughter Shani Formulation/clinical reasoning: Reports worsening depression in the face of losing her mother. She is on Paxil 30 mg. Her full history is unclear as patient was not able to participate further due to diarrheal illness. Will continue home medication regimen for now. Collecting stool samples to rule out C diff. on the unit, patient had some behaviors that were hard to understand such as holding her feces in her hand and offering it to 1 of the counselors; being cleaned up in the bathroom with nurse to returned finding feces smeared all over her clothing; not sure if patient was trying to clean herself and was unable to (she uses a walker; possible history of CVA) or if this represents disorganization. Hospital course: 08/04 Patient said she is feeling better. Described episode leading up to admission where she was feeling distraught and cut her arm, showing marketing writer of superficial scratches on her right forearm. She denies any SI at all. She at 1st denied but then acknowledged that she sometimes uses crack; says that numerous people in the building sell it. Patient does not know her medications. She accepted that she is on an antidepressant. She says that she was very sad when her mother but that she is starting to feel like she is getting better. Patient gave permission to speak with her daughter who is also her guardian -Patient's guardian and daughter said that patient has been getting increasingly more depressed since this summer, not attending to ADLs and has seemed more confused and forgetful. -patient amenable to increasing or adding antidepressant medication -Diarrhea has fully resolved. C diff/GI panel negative. Hospice Care Transitions Coordinator wonders if patient was taking increase dose of her home oxycodone prescription and on the unit, only being given 1 mg b.i.d., had some opiate withdrawal, triggering loose stool. Patient denies taking anymore than 1 mg b.i.d. 08/05 Patient reports that she is feeling better but agrees with the daughter that she has been very depressed over the past months and agrees to starting Wellbutrin. Hospice Care Transitions Coordinator discussed reasoning for starting this med with which she agreed. OT did [place] and patient scored 10/11. -starting Wellbutrin XR 150mg to address worsening depression and to help with executive functioning 08/08 patient's mood is significantly improved and she reports depression gone. Patient's brother present who agrees that she is back to her regular self Patient seems to have some underlying cognitive dysfunction and team is discussing with her daughter appropriate aftercare as it is not clear that patient is able to care for herself on her own 08/09 pt reports she's doing good and denies depression. Says feeling like regular self and would like to go home. She agrees to remain for family meeting tomorrow with her daughter/guardian -will leave med regimen as is for now and see daughters perspective; need to set up aftercare 08/10 patient remains doing better, improved mood; daughter agrees patient is back to regular self; setting up aftercare and feeling note guardian paperwork Hospice Care Transitions Coordinator agrees that given patient's presentation and history, she requires guardianship level care to help her make medical decisions and other decisions regarding her safety and well-being 08/12 remains stable; continued dispo planning 08/13 Patient reports that her mood is good she is doing well. Denies any psychiatric symptoms. She complains of dysuria, a burning sensation when she urinates; subsequent UA corroborates and patient agrees to start on antibiotic. Today patient is INR subtherapeutic at 1.4 (INR has been trending down); discussed with pharmacist and will give 1 time dose of 7.5 mg and then resume standing 5 mg dose tomorrow; will continue to monitor. 08/14 remained stable; appropriate to discharge Plan: CV Q 15 minute checks -Warfarin 1 time dose of 7.5 mg and then resume standing 5 mg dose tomorrow (for subtherapeutic INR) -start on nitrofurantoin 100 mg b.i.d. for 5 days for UTI Continue Wellbutrin XR 150mg Continue home medication regimen Patient on Coumadin and INRs being checked daily C diff/GI panel negative Will get collateral Patient educated on diagnosis and medical condition Anxiety/MDD/Psychosis Treatment per psychiatric team History of mitral valve replacement on Coumadin/hypertension/hyperlipidemia/fluid overload related to rheumatic heart disease Continue Coumadin dosing per pharmacy recommendation Continue atorvastatin, Lasix, lisinopril daily Appears euvolemic on exam Vitals and labs were stable Chronic kidney disease Baseline 1.2 Avoid nephrotoxins Chronic arthralgias Takes oxycodone chronically Patient educated on: diagnosis Informed Consent: understands and further education needed Reason for continued inpatient stay Substantial Risk for: stable for discharge Time Spent With Patient Time: Total time managing care of this patient today ____ minutes.
[2025-08-15 08:00] VITALS: BP 139/69; PULSE 64; RESP 16; TEMP 36.4; O2SAT 98
[2025-08-15] MEDS: buPROPion HCl XL 150 MG TAB.ER.24H PO (08:13)
[2025-08-15] MEDS: Aspirin Enteric Coated 81 MG TABLET.DR PO (08:14)
[2025-08-15 08:17] LABS: INTERNATIONAL NORM RATIO 1.6 (0.9-1.1); Prothrombin Time 17.9 SEC (10.9-12.4)
[2025-08-15] MEDS: oxyCODONE HCl Immed Release 5 MG TABLET PO (08:34)
--- NOTE | 2025-08-15 14:29 | PM.PSYDC ---
DS: Providers Provider Date of Service: 08/15/25 Date of admission: 08/02/25 15:51 Date of discharge: 08/15/25 Primary care physician: Litzy Mcknight MD Attending physician on admission: Cory Herrera Consults: 08/02/25 17:05 Consult to Hospitalist Routine Comment: Consulting Provider: [facility] Hospitalists Reason For Exam: admission physical Attending physician on discharge: Cory Herrera DS: Diagnosis Discharge Diagnosis (1) MDD (major depressive disorder), recurrent severe, without psychosis: Status: Acute (2) HTN (hypertension): Status: Acute (3) Cocaine use disorder: Status: Acute DS: Medications Discharge Medications Home Medications: Home Medications ?Medication ?Instructions ?Recorded ?Confirmed aspirin 81 mg tablet,delayed 81 mg PO DAILY 08/02/25 08/02/25 release atorvastatin 20 mg tablet 20 mg PO DAILY 08/02/25 08/02/25 furosemide 20 mg tablet 20 mg PO DAILY 08/02/25 08/02/25 gabapentin 300 mg capsule 300 mg PO BID 08/02/25 08/02/25 lisinopril 5 mg tablet 5 mg PO DAILY 08/02/25 08/02/25 oxycodone 5 mg tablet 5 mg PO Q12H PRN pain 08/02/25 08/02/25 warfarin 5 mg tablet 5 mg PO DAILY 08/02/25 08/02/25 Previous Rx's ?Medication ?Instructions ?Recorded bupropion HCl 150 mg 24 hr tablet, 150 mg PO DAILY 30 days #30 tabs 08/15/25 extended release clonazepam 0.5 mg tablet 0.5 mg PO TID PRN Anxiety 30 days 08/15/25 #60 tabs nitrofurantoin macrocrystal 100 mg 100 mg PO BID 3 days #6 caps 08/15/25 capsule paroxetine HCl 30 mg tablet 30 mg PO DAILY depressive disorder 08/15/25 30 days #30 tabs phenazopyridine 200 mg tablet 200 mg PO BID bladder pain/dysuria 08/15/25 3 days #6 tabs Data Data Completed and Pending Completed studies during hospitalization [Text1]: 08/09/25 08/10/25 08/11/25 07:46 07:43 07:48 PT 32.5 H 26.4 H 28.5 H INR 2.8 H 2.3 H 2.5 H Urine Color Urine Appearance Urine pH Ur Specific [place] Urine Protein Urine Glucose (UA) Urine Ketones Urine Blood Urine Nitrite Ur Leukocyte Esterase Urine RBC Urine WBC Ur Squamous Epith Cells Urine Bacteria Hyaline Casts T. vaginalis (PCR) Bact vaginosis (PCR) C. krusei/glabrata (PCR) Ivon group (PCR) 08/12/25 08/13/25 08/13/25 07:34 09:58 13:12 PT 23.5 H 16.2 H D INR 2.0 H 1.4 H Urine Color Yellow Urine Appearance Cloudy Urine pH 6.0 Ur Specific [place] 1.015 Urine Protein Negative Urine Glucose (UA) Negative Urine Ketones Negative Urine Blood Small (1+) H Urine Nitrite Negative Ur Leukocyte Esterase Moderate (2+) H Urine RBC 6-10 H Urine WBC >50 H Ur Squamous Epith Cells 6-10 Urine Bacteria 3+ Hyaline Casts 3-5 T. vaginalis (PCR) NOT DETECTED Bact vaginosis (PCR) NEGATIVE C. krusei/glabrata (PCR) NOT DETECTED Ivon group (PCR) NOT DETECTED 08/14/25 08/15/25 08:05 07:54 PT 15.6 H 17.9 H INR 1.4 H 1.6 H Urine Color Urine Appearance Urine pH Ur Specific [place] Urine Protein Urine Glucose (UA) Urine Ketones Urine Blood Urine Nitrite Ur Leukocyte Esterase Urine RBC Urine WBC Ur Squamous Epith Cells Urine Bacteria Hyaline Casts T. vaginalis (PCR) Bact vaginosis (PCR) C. krusei/glabrata (PCR) Ivon group (PCR) 08/13/25 Unknown Urine clean catch - Clean Catch Midstream Urine Culture - Final Escherichia coli DS: Summary Hospital Course Hospital Course: HPI: Patient is a 59-year-old female with history of anxiety, MDD, heart valve replacement on Coumadin, HTN, HLD, CKD, CVA(?), chronic back pain prescribed oxycodone, who presented to the ED following suicidal gesture in the face of ongoing depression. On 08/02 Patient reported being depressed since her mother 4 months ago, saying she just sleeps all the time. She said that she cut herself, indicating her arm (which has only superficial scratches) saying that she wanted to hurt herself but did not want to . Patient acknowledged that she took more medication than usual but denies that this was in any way a suicide attempt, saying she just wanted to sleep. She denies AVH; denies substance abuse; she is prescribed oxycodone however U tox was also positive for cocaine. Partner Marketing Intern attempted to meet with patient again on 08/03 to further clarify at assess however patient having ongoing diarrhea which kept interrupting ability to have a formal conversation. Patient reports that she has a guardian, her daughter Shani Formulation/clinical reasoning: Reports worsening depression in the face of losing her mother. She is on Paxil 30 mg. Her full history is unclear as patient was not able to participate further due to diarrheal illness. Will continue home medication regimen for now. Collecting stool samples to rule out C diff. on the unit, patient had some behaviors that were hard to understand such as holding her feces in her hand and offering it to 1 of the counselors; being cleaned up in the bathroom with nurse to returned finding feces smeared all over her clothing; not sure if patient was trying to clean herself and was unable to (she uses a walker; possible history of CVA) or if this represents disorganization. Hospital course: 08/04 Patient said she is feeling better. Described episode leading up to admission where she was feeling distraught and cut her arm, showing real estate underwriter of superficial scratches on her right forearm. She denies any SI at all. She at 1st denied but then acknowledged that she sometimes uses crack; says that numerous people in the building sell it. Patient does not know her medications. She accepted that she is on an antidepressant. She says that she was very sad when her mother but that she is starting to feel like she is getting better. Patient gave permission to speak with her daughter who is also her guardian -Patient's guardian and daughter said that patient has been getting increasingly more depressed since this summer, not attending to ADLs and has seemed more confused and forgetful. -patient amenable to increasing or adding antidepressant medication -Diarrhea has fully resolved. C diff/GI panel negative. Partner Marketing Intern wonders if patient was taking increase dose of her home oxycodone prescription and on the unit, only being given 1 mg b.i.d., had some opiate withdrawal, triggering loose stool. Patient denies taking anymore than 1 mg b.i.d. 08/05 Patient reports that she is feeling better but agrees with the daughter that she has been very depressed over the past months and agrees to starting Wellbutrin. Partner Marketing Intern discussed reasoning for starting this med with which she agreed. OT did [place] and patient scored 10/11. -starting Wellbutrin XR 150mg to address worsening depression and to help with executive functioning 08/08 patient's mood is significantly improved and she reports depression gone. Patient's brother present who agrees that she is back to her regular self Patient seems to have some underlying cognitive dysfunction and team is discussing with her daughter appropriate aftercare as it is not clear that patient is able to care for herself on her own 08/09 pt reports she's doing good and denies depression. Says feeling like regular self and would like to go home. She agrees to remain for family meeting tomorrow with her daughter/guardian -will leave med regimen as is for now and see daughters perspective; need to set up aftercare 08/10 patient remains doing better, improved mood; daughter agrees patient is back to regular self; setting up aftercare and feeling note guardian paperwork Partner Marketing Intern agrees that given patient's presentation and history, she requires guardianship level care to help her make medical decisions and other decisions regarding her safety and well-being 08/12 remains stable; continued dispo planning 08/13 Patient reports that her mood is good she is doing well. Denies any psychiatric symptoms. She complains of dysuria, a burning sensation when she urinates; subsequent UA corroborates and patient agrees to start on antibiotic. Today patient is INR subtherapeutic at 1.4 (INR has been trending down); discussed with pharmacist and will give 1 time dose of 7.5 mg and then resume standing 5 mg dose tomorrow; will continue to monitor. 08/14 remained stable; appropriate to discharge Plan: CV Q 15 minute checks -Warfarin 1 time dose of 7.5 mg and then resume standing 5 mg dose tomorrow (for subtherapeutic INR) -start on nitrofurantoin 100 mg b.i.d. for 5 days for UTI Continue Wellbutrin XR 150mg Continue home medication regimen Patient on Coumadin and INRs being checked daily C diff/GI panel negative Will get collateral Patient educated on diagnosis and medical condition Anxiety/MDD/Psychosis Treatment per psychiatric team History of mitral valve replacement on Coumadin/hypertension/hyperlipidemia/fluid overload related to rheumatic heart disease Continue Coumadin dosing per pharmacy recommendation Continue atorvastatin, Lasix, lisinopril daily Appears euvolemic on exam Vitals and labs were stable Chronic kidney disease Baseline 1.2 Avoid nephrotoxins Time Spent with Patient Time attestation: Total time managing care of this patient today ____ minutes. Discharge Plan Discharge Anticipated Discharge Date/Time: 08/15/25 16:00 Patient Disposition: Home, Self-Care Discharge Diagnosis: MDD, recurrent, severe without psychosis, in full remission Referrals: [facility] Intake w Amrik Fernandezrashadpaulina [Other] - 08/16/25 1:00 pm Referral Note: Amrik will re-establish Leigh. This will include setting her up with an in-person female therapist and an in-person psychiatric provider at one of the two [place] offices. Ingrid Gomez [facility] [Other] - 08/24/25 1:00 pm Referral Note: Ingrid will meet you in the community to discuss the [facility] program and the services it offers. [facility] Yris MENEZES [Other] - 3-5 Days Referral Note: Please call Yris to set up a tour. [facility] [place] is a facility that provides care and socialization services for elderly or disabled adults who cannot stay at home alone during the day. Our centers operate during daytime hours and provide clients with a safe and structured environment. Litzy Mcknight MD [Primary Care Provider, Internal Medicine] - 1 Week Discharge Medications: New nitrofurantoin macrocrystal 100 mg capsule 100 mg PO BID 3 Days Qty: 6 0RF Rx Instructions: must administer with a meal/food bupropion HCl 150 mg Tablet Extended Release 24 Hr 150 mg PO DAILY 30 Days Qty: 30 0RF phenazopyridine 200 mg Tablet 200 mg PO BID 3 Days Qty: 6 0RF Continued atorvastatin 20 mg tablet 20 mg PO DAILY aspirin 81 mg tablet,delayed release (DR/EC) 81 mg PO DAILY warfarin 5 mg tablet 5 mg PO DAILY gabapentin 300 mg capsule 300 mg PO BID lisinopril 5 mg tablet 5 mg PO DAILY furosemide 20 mg tablet 20 mg PO DAILY oxycodone 5 mg tablet 5 mg PO Q12H PRN (Reason: pain) paroxetine HCl 30 mg tablet 30 mg PO DAILY 30 Days Qty: 30 0RF Changed clonazepam 0.5 mg tablet 0.5 mg PO TID PRN (Reason: Anxiety) 30 Days Qty: 60 0RF Discontinued mirtazapine 15 mg tablet 7.5 mg PO BEDTIME PRN (Reason: Sleep) clonazepam 0.5 mg tablet 1 mg PO BEDTIME Discharge Orders: Discharge Order (Routine); Ordered 08/15/25 Ordered By: Cory Herrera Diet: Regular diet Activity on Discharge: As tolerated Stand Alone Forms: Patient Portal Discharge page Print Language: Beninese Care Plan Goals: Maintain mood and safe behaviors Take medications as prescribed Continue to pursue sobriety Practice coping skills Continue with outpatient providers and reach out to them as needed Health Concerns: Mood stability and behaviors HTN Hx CVA UTI on antibiotic Plan of Treatment: Follow up with your PCP, psychiatric provider and other outpatient providers regarding above concerns Take medications as prescribed Assessment: Risk assessment at time of discharge:? Patient was interviewed prior to discharge and found to be fully oriented and without any SI or HI. Patient has improved insight and judgment and wants to continue treatment. Patient is not in imminent risk of harm to self or others and has a safety plan that includes presenting to the closest ER or calling 911 if feeling unsafe.? Patient has been observed closely by nursing and unit staff throughout admission; patient has not engaged in any behaviors that suggest dangerousness to self or others and has demonstrated appropriate behaviors and impulse control
--- NOTE | 2025-08-18 07:50 | PC.NURSE ---
Patient c/o anxiety and was given Clonazepam 0.5 mg po at 2013 on 08/13/25 as a prn.
== END 2025-08-15 15:58 | disposition home or self-care (01) | DRG 751 ==
PROVIDERS: Physician Assistant Medical; Admitting Provider Psychiatry & Neurology Psychiatry; PCP Internal Medicine; Visit Provider Psychiatry & Neurology Psychiatry
DX: F33.2 Major depressive disorder, recurrent severe without psychotic features (principal); E78.5 Hyperlipidemia, unspecified; I12.9 Hypertensive chronic kidney disease with stage 1 through stage 4 chronic kidney disease, or unspecified chronic kidney disease; F14.10 Cocaine abuse, uncomplicated; G89.29 Other chronic pain; M54.9 Dorsalgia, unspecified; N18.9 Chronic kidney disease, unspecified; R79.1 Abnormal coagulation profile; Z95.2 Presence of prosthetic heart valve; Z63.4 Disappearance and death of family member; Z91.52 Personal history of nonsuicidal self-harm; Z79.01 Long term (current) use of anticoagulants; Z87.891 Personal history of nicotine dependence; Z79.899 Other long term (current) drug therapy
CPT/HCPCS: 36415; 80048; 80053; 80061; 81001; 81515; 83036; 84443; 85025; 85610; 87086; 87088; 87186; 87493; 87507; 97161

== ENCOUNTER → 2025-08-02 15:51 | Outpatient (BNV) | payer OTHER, SELFPAY | PROVIDERS: Admitting Provider Psychiatry & Neurology Psychiatry; PCP Internal Medicine; Visit Provider Nurse Practitioner Family | DX: I10 Essential (primary) hypertension (principal) | CPT/HCPCS: 99221 ==

== ENCOUNTER → 2025-08-02 15:51 | Outpatient (BNV) | payer OTHER, SELFPAY | PROVIDERS: Admitting Provider Psychiatry & Neurology Psychiatry; PCP Internal Medicine; Visit Provider Psychiatry & Neurology Psychiatry | DX: F33.2 Major depressive disorder, recurrent severe without psychotic features (principal); I10 Essential (primary) hypertension; F14.10 Cocaine abuse, uncomplicated | CPT/HCPCS: 99232 ==